=== PATIENT | female | born 1985 | race Caucasian/White ===

== ENCOUNTER 2017-02-04 17:07 | Emergency (ER) | payer OTHER ==
[2017-02-04 17:34] VITALS: BMI 26.4
[2017-02-04] MEDS ORDERED: NAPROXEN 500 MG TABLET (FP) PO ONE (17:39)
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
[2017-02-04] MEDS ORDERED: NAPROXEN 500 MG TABLET (FP) ONE (18:13)
[2017-02-04 19:02] VITALS: BP 117/59; PULSE 69; TEMP 97.6
== END 2017-02-04 18:16 | disposition home or self-care (01) ==
LOC: JER 17:07
DX: S13.4XXA Sprain of ligaments of cervical spine, initial encounter (principal); V43.52XA Car driver injured in collision with other type car in traffic accident, initial encounter; Y92.414 Local residential or business street as the place of occurrence of the external cause; Y93.89 Activity, other specified; Y99.0 Civilian activity done for income or pay
CPT/HCPCS: 99282-25

== ENCOUNTER 2017-07-11 04:28 | Inpatient (IN) | payer OTHER ==
[2017-07-11 04:40] VITALS: BMI 26.6
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
[2017-07-11 06:56] LABS: BASOPHIL 0.2 % (0-2.0); EOSINOPHIL 1.5 % (0-4.5); MCH 28.8 pg (25.7-33.7); MCHC 32.7 g/dl (32.0-36.0); MEAN CELL VOLUME 88.2 fl (80-96); MEAN PLT VOLUME 9.8 fl (7.5-11.1); NEUTROPHILS 48.4 % (42.8-82.8); PLATELET COUNT 200 K/MM3 (134-434); RDW 13.2 % (11.6-15.6); WHITE BLOOD COUNT 10.3 K/mm3 (4.0-10.0)
[2017-07-11] MEDS ORDERED: SODIUM CHLORIDE 1,000 ML IV ONE (06:56)
[2017-07-11 07:19] LABS: AMYLASE 63 U/L (25-115)
[2017-07-11 07:23] LABS: ALBUMIN 3.9 g/dl (3.4-5.0); ALK PHOS 74 U/L (45-117); ANION GAP 11 (8-16); BILIRUBIN,TOTAL 0.2 mg/dL (0.2-1.0); CALCIUM 8.9 mg/dL (8.5-10.1); CO2 21 mmol/L (21-32); CREATININE 0.6 mg/dL (0.55-1.02); GLUCOSE,RANDOM 95 mg/dL (74-106); SGOT/AST 18 U/L (15-37); SGPT/ALT 24 U/L (12-78); TOT PROT 7.9 g/dl (6.4-8.2)
[2017-07-11] MEDS ORDERED: LORazepam 2 MG/ML SDV VIAL ONE (08:41)
[2017-07-11 08:51] LABS: URINE MARIJUANA THC NEGATIVE ng/ml (CUTOFF=50)
[2017-07-11] MEDS ORDERED: ALBUTEROL SO4 2.5/IPRATROPIUM 0.5 INH SOL 3 ML VIAL.NEB. NEB ONE ×2 (10:06→10:22)
--- NOTE | 2017-07-11 10:36 | PDOC ---
*Physical Exam - Vital Signs Last Vital Signs Temp Pulse Resp BP Pulse Ox 98.4 F 113 H 18 117/78 99 07/11/17 07:48 07/11/17 09:47 07/11/17 09:47 07/11/17 09:47 07/11/17 09:47 ED Treatment Course - LABORATORY CBC & Chemistry Diagram: 07/11/17 06:48 07/11/17 06:48 - ADDITIONAL ORDERS Additional order review: Laboratory Results 07/11/17 07/11/17 07/11/17 08:55 08:22 07:47 Sodium Potassium Chloride Carbon Dioxide Anion Gap BUN Creatinine Creat Clearance w eGFR Random Glucose Lactic Acid 1.9 Calcium Total Bilirubin AST ALT Alkaline Phosphatase Total Protein Albumin Total Amylase Lipase Beta HCG, Quant Urine HCG, Qual Negative Opiates Screen Negative Methadone Screen Negative Barbiturate Screen Negative Phencyclidine Screen Negative Ur Amphetamines Screen Negative MDMA (Ecstasy) Screen Negative Benzodiazepines Screen Negative Cocaine Screen Negative U Marijuana (THC) Screen Negative Alcohol, Quantitative 07/11/17 07/11/17 07/11/17 06:48 06:48 06:48 Sodium Potassium Chloride Carbon Dioxide Anion Gap BUN Creatinine Creat Clearance w eGFR Random Glucose Lactic Acid Calcium Total Bilirubin AST ALT Alkaline Phosphatase Total Protein Albumin Total Amylase 63 Lipase 196 Beta HCG, Quant < 1.0 Urine HCG, Qual Opiates Screen Methadone Screen Barbiturate Screen Phencyclidine Screen Ur Amphetamines Screen MDMA (Ecstasy) Screen Benzodiazepines Screen Cocaine Screen U Marijuana (THC) Screen Alcohol, Quantitative 163.8 H* 07/11/17 06:48 Sodium 143 Potassium 3.8 Chloride 111 H Carbon Dioxide 21 Anion Gap 11 BUN 9 D Creatinine 0.6 Creat Clearance w eGFR > 60 Random Glucose 95 Lactic Acid Calcium 8.9 Total Bilirubin 0.2 D AST 18 ALT 24 Alkaline Phosphatase 74 D Total Protein 7.9 D Albumin 3.9 D Total Amylase Lipase Beta HCG, Quant Urine HCG, Qual Opiates Screen Methadone Screen Barbiturate Screen Phencyclidine Screen Ur Amphetamines Screen MDMA (Ecstasy) Screen Benzodiazepines Screen Cocaine Screen U Marijuana (THC) Screen Alcohol, Quantitative 07/11/17 06:48 RBC 4.50 MCV 88.2 MCHC 32.7 RDW 13.2 MPV 9.8 Neutrophils % 48.4 D Lymphocytes % 42.8 H D Monocytes % 7.1 Eosinophils % 1.5 Basophils % 0.2 - Medications Given in the ED: ED Medications Discontinued Medications Generic Name Dose Route Start Last Admin Trade Name Emanuel PRN Reason Stop Dose Admin Albuterol/Ipratropium 1 amp 07/11/17 10:06 07/11/17 10:17 Duoneb - NEB 07/11/17 10:07 1 amp ONCE ONE Administration Sodium Chloride 1,000 mls @ 1,000 mls/hr 07/11/17 06:56 07/11/17 06:57 Normal Saline - IV 07/11/17 07:55 1,000 mls/hr ASDIR ONE Administration Lorazepam 1 mg 07/11/17 08:41 07/11/17 08:52 Ativan Injection - IVPUSH 07/11/17 08:42 1 mg ONCE ONE Administration Medical Decision Making - Medical Decision Making 07/11/17 10:29 Sign out taken from Dr. Casanova at 7am. Pt is 32 yo F with h/o asthma presenting with altered mental status in the context of ETOH use last night. Pt arrived to ER obtunded, believed to be 2/2 ETOH. During course of ER visit, pt was observed by overnight attending to have jerking movements of her upper body. I also witnessed multiple episodes of jerking movements during the morning. My suspicion for true seizure activity is very low. The episodes appeared similar to coughing fits, but pt was completely unresponsive during these episodes. Given pt's level of obtundation, seizures cannot be ruled out at this time. CTH was obtained that appears normal. At approx 10AM - pt was reassessed and found to have improved mental status. Now alert and oriented, able to converse. Pt denies any coingestions last night , denies any recollection of what transpired. She states that she remembers having chest pain prior to collapsing. Mother at this time reports that she has a history of a "heart condition" that required intubation and ICU stay. Further questioning reveals that pt likely had a pericardial effusion. I performed a bedside echo that showed NO PERICARDIAL EFFUSION at this time, with normal contractility of the heart. EKG is NSR with no electrical alternans , pt's vital signs normal. I spoke with Dr. Fan, neurologist inventory control analyst, to discuss pt's work up for possible seizures. He agrees that the likelihood of seizure activity is low but recommends EEG during this admission. Sign out given to hospitalist team. Case discussed in detail with admitting physician including history, physical exam and ancillary studies. Admitting physician has assumed care for the patient and will follow all pending diagnostics and complete the evaluation and treatment. *DC/Admit/Observation/Transfer Diagnosis at time of Disposition: Altered mental status, Chest pain - Discharge Dispostion Admit: Yes Decision to Admit order Date/Time: Decision to Admit Order Category Date Time Status Decision to Admit to Hospital Routine Admission 07/11/17 10:15 Active
[2017-07-11 11:03] LABS: CPK 94 IU/L (26-192); TROPONIN I < 0.02 ng/ml (0.00-0.05)
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
[2017-07-11] MEDS ORDERED: ACETAMINOPHEN 325 MG TABLET (FP) ONE (16:29)
[2017-07-11] MEDS ORDERED: ACETAMINOPHEN 325 MG TABLET (FP) PO PRN (16:38)
--- NOTE | 2017-07-11 16:55 | MSN ---
Admitting History and Physical - Primary Care Physician PCP: Dr. Palm - Admission Chief Complaint: Seizure-liked activity History of Present Illness: Patient is a 32-year-old female with past medical history of asthma and chronic back pain 2/2 herniated disk, brought in by EMS for seizure-liked activity. Patient states that she experienced chest pain after she came home from her brother's birthday libertarian. Patient then felt short of breath and suddenly lost her consciousness. Patient states that she drank 3 beer at the libertarian and denies any illicit drug use. Patient also admits having chest pain at least once every month and a history of pericardial effusion with unknown etiology twice, which were treated in [facility]. Patient's aunt was presented during the seizure-liked episode and she states that patient was short of breath. She tried to find patient's inhaler and after she came back, patient was found unconscious on the floor, having full-body shaking multiple times, with foaming in her mouth, but without any urinary incontinence or tongue bite, each lasted for several seconds. Patient's aunt denies any history of seizure or heart disease on patient's behave. As per senior resident, patient states that she had experienced 2 episodes of transient amnesia. During those episodes, she states that she stopped walking on her way to a building in her college and stood for 30 minutes. In ER patient continued to be unresponsive and experienced several episodes of brief upper body shaking. Patient was given 1 dose to ativan 1mg IV. Patient later regained consciousness but was confused and lethargic. A bedside echo was performed by ER physician due to the complaint of chest pain and history of pericardial effusion, which was found to be negative. 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 arthroscopy on her right knee Cone biopsy of her cervix - Smoking History Smoking history: Never smoked Have you smoked in the past 12 months: No Aproximately how many cigarettes per day: 0 - Alcohol/Substance Use Hx Alcohol Use: Yes (SOCIALLY) History of Substance Use: reports: None - Social History Usual Living Arrangement: Yes: With Child ADL: Independent Occupation: Student History of Recent Travel: Yes ([place]) Home Medications - Allergies Allergies/Adverse Reactions: Allergies Allergy/AdvReac Type Severity Reaction Status Date / Time No Known Allergies Allergy Verified 07/11/17 04:37 - Home Medications Home Medications: Ambulatory Orders No Home Medications 0 dose .ROUTE UTDICT 10/05/13 Family Disease History - Family Disease History Family Disease History: Heart Disease: Mother (HTN) Review of Systems - Review of Systems Constitutional: reports: Chills, Lethargy. denies: Fever Cardiovascular: reports: Chest Pain, Edema, Shortness of Breath. denies: Palpitations Respiratory: reports: SOB, Wheezing Gastrointestinal: denies: Abdominal Pain Genitourinary: denies: Flank Pain, Incontinence Breasts: reports: Discharge from Nipple Musculoskeletal: reports: Back Pain. denies: Joint Pain, Joint Swelling Integumentary: reports: Lump (tender lump on right lateral foot) Neurological: denies: Numbness Physical Examination Vital Signs: Vital Signs Temperature 98.7 F 07/11/17 14:45 Pulse Rate 92 H 07/11/17 14:45 Respiratory Rate 22 07/11/17 14:45 Blood Pressure 136/85 07/11/17 14:45 O2 Sat by Pulse Oximetry (%) 100 07/11/17 11:52 Constitutional: Yes: Well Nourished, Mild Distress, Other (lethargic) Eyes: Yes: Conjunctiva Clear, EOM Intact, PERRL. No: Sclera Icterus HENT: Yes: Atraumatic, Normocephalic, Other (No tongue laceration) Neck: Yes: Supple, Trachea Midline Cardiovascular: Yes: Regular Rate and Rhythm, Tachycardia, S1, S2. No: Gallop, Murmur, Rub Respiratory: Yes: Wheezes (bilateral inspiatory and expiratory wheezes) Gastrointestinal: Yes: Normal Bowel Sounds, Soft. No: Distention, Tenderness, Tenderness, Rebound Musculoskeletal: Yes: Muscle Pain (tender on sternum and left lower ribs) Edema: No Peripheral Pulses WNL: Yes Peripheral Pulses: Left Radial: 2+, Right Radial: 2+, Left Doralis Pedis: 2+, Right Dorsalis Pedis: 2+ Integumentary: No: Bruising, Erythema Neurological: Yes: Alert, Oriented, Babinski negative, Lethargy. 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), LLE (3/5 on hip flexion), RUE (3+/5 on shouler abduction, elbow flexion and extension), RLE (3+/5 on hip flexion) Psychiatric: Yes: Alert, Oriented Labs: Laboratory Results - last 24 hr 07/11/17 07/11/17 07/11/17 06:48 06:48 06:48 WBC 10.3 H D RBC 4.50 Hgb 13.0 D Hct 39.7 D MCV 88.2 MCH 28.8 MCHC 32.7 RDW 13.2 Plt Count 200 D MPV 9.8 Neutrophils % 48.4 D Lymphocytes % 42.8 H D Monocytes % 7.1 Eosinophils % 1.5 Basophils % 0.2 Sodium 143 Potassium 3.8 Chloride 111 H Carbon Dioxide 21 Anion Gap 11 BUN 9 D Creatinine 0.6 Creat Clearance w eGFR > 60 Random Glucose 95 Lactic Acid Calcium 8.9 Total Bilirubin 0.2 D AST 18 ALT 24 Alkaline Phosphatase 74 D Creatine Kinase Troponin I Total Protein 7.9 D Albumin 3.9 D Total Amylase Lipase Beta HCG, Quant < 1.0 Urine HCG, Qual Opiates Screen Methadone Screen Barbiturate Screen Phencyclidine Screen Ur Amphetamines Screen MDMA (Ecstasy) Screen Benzodiazepines Screen Cocaine Screen U Marijuana (THC) Screen Alcohol, Quantitative 07/11/17 07/11/17 07/11/17 06:48 06:48 07:47 WBC RBC Hgb Hct MCV MCH MCHC RDW Plt Count MPV Neutrophils % Lymphocytes % Monocytes % Eosinophils % Basophils % Sodium Potassium Chloride Carbon Dioxide Anion Gap BUN Creatinine Creat Clearance w eGFR Random Glucose Lactic Acid Calcium Total Bilirubin AST ALT Alkaline Phosphatase Creatine Kinase Troponin I Total Protein Albumin Total Amylase 63 Lipase 196 Beta HCG, Quant Urine HCG, Qual Opiates Screen Negative Methadone Screen Negative Barbiturate Screen Negative Phencyclidine Screen Negative Ur Amphetamines Screen Negative MDMA (Ecstasy) Screen Negative Benzodiazepines Screen Negative Cocaine Screen Negative U Marijuana (THC) Screen Negative Alcohol, Quantitative 163.8 H* 07/11/17 07/11/17 07/11/17 08:22 08:55 10:17 WBC RBC Hgb Hct MCV MCH MCHC RDW Plt Count MPV Neutrophils % Lymphocytes % Monocytes % Eosinophils % Basophils % Sodium Potassium Chloride Carbon Dioxide Anion Gap BUN Creatinine Creat Clearance w eGFR Random Glucose Lactic Acid 1.9 Calcium Total Bilirubin AST ALT Alkaline Phosphatase Creatine Kinase 94 Troponin I < 0.02 Total Protein Albumin Total Amylase Lipase Beta HCG, Quant Urine HCG, Qual Negative Opiates Screen Methadone Screen Barbiturate Screen Phencyclidine Screen Ur Amphetamines Screen MDMA (Ecstasy) Screen Benzodiazepines Screen Cocaine Screen U Marijuana (THC) Screen Alcohol, Quantitative Imaging - Results Cat Scan: Report Reviewed (No acute intracranial pathology), Image Reviewed EKG: Report Reviewed (normal sinus rhythm, T wave inversion on V1, V2, no ST elevation), Image Reviewed Problem List - Problems (1) Chest pain Code(s): R07.9 - CHEST PAIN, UNSPECIFIED Qualifiers: Chest pain type: precordial pain Qualified Code(s): R07.2 - Precordial pain; R07.2 - Precordial pain (2) Seizure Code(s): R56.9 - UNSPECIFIED CONVULSIONS (3) Asthma Code(s): J45.909 - UNSPECIFIED ASTHMA, UNCOMPLICATED Qualifiers: Asthma severity: unspecified severity Asthma persistence: unspecified Asthma complication type: uncomplicated Qualified Code(s): J45.909 - Unspecified asthma, uncomplicated; J45.909 - Unspecified asthma, uncomplicated; J45.909 - Unspecified asthma, uncomplicated (4) Tachycardia Code(s): R00.0 - TACHYCARDIA, UNSPECIFIED Assessment/Plan Patient is a 32-year-old female with a past medical history of asthma and chronic back pain, being evaluated for seizure-liked activity and chest pain. 1. Seizure-liked activity - Pseudo-seizure vs. tonic-clonic seizure - Most likely tonic-clonic seizure initially, then followed by pseudo-seizure - Initial CT shows no intracranial pathology, will order MRI to rule out intraparenchymal pathology or underlying tumor - Order EEG to rule out seizure activity - Neuro check Q4Hr to access patient's mental status - Consult neuro - Seizure protocol 2. Chest pain - Most likely musculoskeletal in origin (tender to palpation, worse with movement) - Other etiology includes cardiac, although unlikely (negative trop x2, EKG shows NSR) - Order chest and left rib x-ray to rule out any acute fracture 2/2 to fall - Repeat EKG - Order ECHO to rule out any cardiac pathology - Pain control with tylenol 650mg PO Q6hr PRN 3. Asthma - Continue Duoneb - Albuterol PRN 4. Tachycardia - Likely pain-related - Continue to monitor after pain control 5. DVT prophylaxis - Lovenox 40mg SQ once daily - Encourage early ambulation as tolerated
[2017-07-11 17:10] LABS: CPK 88 IU/L (26-192); TROPONIN I < 0.02 ng/ml (0.00-0.05)
[2017-07-11] MEDS ORDERED: PNEUMOC 13-VAL CONJ-DIP CRM/PF 0.5 ML DISP.SYRIN IM ONE (18:00)
--- NOTE | 2017-07-11 18:25 | HP ---
CHIEF COMPLAINT: seizure-like activity PCP: Dr. Palm HISTORY OF PRESENT ILLNESS: 32 yr old woman with asthma BIBEMS due to witnessed seizure-like activity. she had returned from her little brother's bday with the family where she had two sim's and "small whiskey and red bull" that she did not finish without eating food. She was able to drive home. She went upstairs to the bathroom and felt 10/10 aching left sided chest pain radiating to her left shoulder and shortness of breath, she felt herself go the ground and she passed out. She recalls waking up briefly and hearing her aunt looking for her inhaler, she recalls that her chest pain was still present. she passed out again and the next thing she recalls is waking up in the ED. Denies drug use. says she has been having memory problems for the past month and notes an episode of transient amnesia last week. she went to [employer], a campus she has been going to for the past year and familiar with. She walked from her to a building and then from building 1 to building 2, she walked out of building 2 into the courtyard she stood there for 30 minutes unable to recall her name, where she was or what she was doing. She followed people around until she remembered who she was and where she is 30mins later. Her chest pain continued in the ED. Says she has been having intermittent clear watery discharge from her b/l nipple and areolas since her breast surgery and says her breasts always feel full, like "they are engorged as if she was still lactating." denies bloodt or milk like discharge, denies breast trauma. ER course was notable for: (1) head ct w/o contrast: no acute pathology (2) EKG, trop 1 negative (3) witnessed UE seizure-like activity lasting several seconds at a time, was given ativan with minimal relief. Recent Travel: was in [place] in last 3 months, denies new exposures/raw or new food PAST MEDICAL HISTORY: 3-4 yrs ago she was hospitalized in an ICU for 1 week during which she was intubated, due to pericardial effusion, she was found by family not breathing at home, she had been intubated in the field and brought to a hospital. does not know the cause of the effusion, is not medications and does not follow with user support analyst. asthma - controlled, uses flovent prn Disc herniation - receives cervical cortisone shots for pain by Dr. Castañeda has IUD in place for birthcontrol, thinks it's chrome, unsure if it is hormonal PAST SURGICAL HISTORY: b/l breast reconstruction - [place] of the [place] 3[place]7 yrs ago due to breast damage caused by breast feeding 05/2017 right knee arthroscopy Social History: 2 daughters, aged 12 and 13 Smoking: started age 23, smoked 1pk/day for 1 year, 2pks/day for 1yr then tapers to 1pk/day for 1yr then quit. recent nicotine use few days ago with 2 cigs Alcohol: occasional, denies hx of DT's Drugs: denies Family History: grandmother with HTN, denies family hx of seizures or cardiac conditions Allergies No Known Allergies Allergy (Verified 07/11/17 04:37) HOME MEDICATIONS: takes motrin 800mg BID almost every other day for pain REVIEW OF SYSTEMS CONSTITUTIONAL: Present: intentional weight loss, "a little bit in the last 2 months" Absent: fever, chills, diaphoresis, generalized weakness, malaise, loss of appetite, HEENT: Absent: rhinorrhea, nasal congestion, throat pain, throat swelling, difficulty swallowing, mouth swelling, ear pain, eye pain, visual changes CARDIOVASCULAR: Present: chest pain, Absent: syncope, palpitations, irregular heart rate, lightheadedness, peripheral edema RESPIRATORY: Present: shortness of breath, occasional nonproductive cough, Absent: dyspnea with exertion, orthopnea, wheezing, stridor, hemoptysis GASTROINTESTINAL: Absent: abdominal pain, abdominal distension, nausea, vomiting, diarrhea, constipation, melena, hematochezia GENITOURINARY: Absent: dysuria, frequency, urgency, hesitancy, hematuria, flank pain, genital pain MUSCULOSKELETAL: Absent: myalgia, arthralgia, joint swelling, back pain, neck pain SKIN: Absent: rash, itching, pallor HEMATOLOGIC/IMMUNOLOGIC: Absent: easy bleeding, easy bruising, lymphadenopathy, frequent infections ENDOCRINE: Absent: unexplained weight gain, unexplained weight loss, heat intolerance, cold intolerance NEUROLOGIC: Present: seizure-like activity, mental status changes Absent: headache, focal weakness or paresthesias, dizziness, unsteady gait,, bladder or bowel incontinence PHYSICAL EXAMINATION Vital Signs - 24 hr 07/11/17 07/11/17 12:41 14:45 Temperature 98.7 F Pulse Rate 99 H 92 H Respiratory 16 22 Rate Blood Pressure 135/80 136/85 GENERAL: Awake, alert, and fully oriented, in no acute distress. HEAD: Normal with no signs of trauma. EYES: Pupils equal, round and reactive to light, extraocular movements intact, sclera anicteric, conjunctiva clear. No lid lag. EARS, NOSE, THROAT: oropharynx clear without exudates. Moist mucous membranes. no oral lesions, prominent tonsils without erythema or exudates. NECK: Normal range of motion, supple without lymphadenopathy, JVD, or masses. LUNGS: Breath sounds equal, mild wheezing b/l, no crackles, no rhonchi. HEART: Regular rhythm, tachycardia, normal S1 and S2 without murmur, rub or gallop. CHEST: ttp in midsternum and left lateral chest ABDOMEN: Soft, nontender, not distended, normoactive bowel sounds, no guarding, no rebound, no masses. No hepatomegaly or splenomegaly. MUSCULOSKELETAL: ttp in right lateral foot, No CVA tenderness. UPPER EXTREMITIES: 2+ radial pulses, warm, well-perfused. No cyanosis. No clubbing. No peripheral edema. LOWER EXTREMITIES: 2+ dp pulses, warm, well-perfused. No calf tenderness. right knee with well-healed scars. right ankle swelling. NEUROLOGICAL: Cranial nerves II-XII intact. Normal speech. facial symmetry, poor motor strength effort during exam, however patient was able to lift herself up to sitting position by herself. 2+ reflex in b/l biceps and brachioradialis and knee jerk. oriented to person/birthday/place/month/date/year /day/president, immediate recall of 3/3, 5-minute recall 2/3, did not spell world forwards or backwards, able to complete serial subtracts of 3 from 100 made it to 91. SKIN: Warm, dry, normal turgor, no rashes or lesions noted, normal capillary refill. Laboratory Results - last 24 hr 07/11/17 15:30 Creatine Kinase 88 Troponin I < 0.02 ASSESSMENT/PLAN: 32 yr old woman with asthma BIBEMS due to seizure-like activity and chest pain of unclear etiology. #Seizure-like activity of unclear etiology, no s/s of infections/electrolyte abnormalities/u tox neg, suspicious for pseudoseizure pending further w/u - MRI without contrast to r/o tissue pathology - neuro consult, Dr. Fan called by Dr. Pozo in ED, recommend EEG - low suspicion for etoh- w.d seizure as pt had only drank alcohol a few hours prior, early to be in withdrawal #Chest pain - reproducible, likely due to trauma of falling down - rib series xrays - r/o ACS with trop x2 and repeat EKG, though low suspicion as she has no risk- factors - pain control with tylenol prn #Asthma - duonebs prn #right ankle swelling - ankle xray to r/o fracture #Breast discharge - prolactin level #DVT - lovenox #Diet: regular Visit type - Emergency Visit Emergency Visit: Yes ED Registration Date: 07/11/17 Care time: The patient presented to the Emergency Department on the above date and was hospitalized for further evaluation of their emergent condition. - New Patient This patient is new to me today: Yes Date on this admission: 07/11/17 - Critical Care Critical Care patient: No
--- NOTE | 2017-07-11 20:04 | CONSULT ---
Consult - text type - Consultation Consultation Note: NEUROLOGY CONSULTATION is greatly appreciated: This 32 yo RH edgar has 2 children aged 13 and 12. H/O asthma for which he uses inhaler on PRN basis. 2 years ago had chest pain, radiating to the right arm with SOB and was found to have pericardial effusion. Cause was never discovered and/or explained. Yesterday, after a alliance party, Pt experinced chest pain, SOB and Loss of consciousness. On arrival to ER was "obtunded" with BAL > 160 mg%. During the evening she exhibited jerking mov'ts of the arms witnessed by the ER MD who suspected non-epileptic etiology. This morning obtundation and jerking had resolved. Pt continues to c/o chest pressure and SOB. CT of head and MRI of brain (reviewed): Normal BERHANE: + scattered wheezes. Chest pain to auscultation. No evidence of head injury. NEURO: Withdrawn but awake, alert. Slow to respond. O x 3. Fluent speech CN II-XII: Normal Motor: Drops left arm without drift. Grasps and MIRNA's are variable on the left but normalize with encouragement. Normal reflexes. Toes downgoing Coord: No FTN dystaxia Sensory: Normal Gait: Variable but normal station. IMP: Normal neurological exam. Possible syncope. Possible seizure. Depression Suggest: Pulmonary consultation and PFT's Cardiology consultation and echocardiogram Mobilize OO bed to chair and follow orthostatic BP's. No specific neuro Rx at this time. Thank you very much, Lonnie Fan MD
--- NOTE | 2017-07-11 20:07 | HP ---
CHIEF COMPLAINT: seizures PCP: Dr. Palm HISTORY OF PRESENT ILLNESS: 32F w/ hx of asthma, herniated disk, and a pericardial effusion of unclear etiology presenting with seizure-like activity. Per pt, she had 3 beers at her relative's birthday [employer], came home, and started having dyspnea and chest pain. While her aunt searched for her inhaler, she collapsed in the bathroom and does not remember what happened until arriving in the hospital. Per the aunt , she found the pt on the floor with her arms and legs extended shaking her torso and foaming at the mouth. She denies urinary or stool incontinence and tongue biting. This episode lasted several seconds, and the pt remained unresponsive. She called EMS, and the pt developed several more episodes of these seizure-like episodes en route to the hospital. The pt denies any trauma suffered from collapsing. The pt has no personal or family hx of seizures. Pt denies fevers, chills, n/v/d /c, abdominal pain, dysuria, and sick contacts. ER course was notable for: (1) bedside echo showing no pericardial effusion (2) normal head CT (3) pt given ativan 1mg, duonebs, and 1L NS Recent Travel: PAST MEDICAL HISTORY: Asthma pericardial effusion of unclear etiology herniated disk PAST SURGICAL HISTORY: b/l breast tissue repair knee surgery Social History: Smoking: none Alcohol: social Drugs: none Family History: Allergies No Known Allergies Allergy (Verified 07/11/17 04:37) HOME MEDICATIONS: Home Medications Medication Instructions Recorded No Home Medications 0 dose .ROUTE UTDICT 10/05/13 REVIEW OF SYSTEMS CONSTITUTIONAL: Absent: fever, chills, diaphoresis, generalized weakness, malaise, loss of appetite, weight change HEENT: Absent: rhinorrhea, nasal congestion, throat pain, throat swelling, difficulty swallowing, mouth swelling, ear pain, eye pain, visual changes CARDIOVASCULAR: Absent: syncope, palpitations, irregular heart rate, lightheadedness, peripheral edema Present: chest pain RESPIRATORY: Absent: cough, dyspnea with exertion, orthopnea, wheezing, stridor, hemoptysis Present: SOB GASTROINTESTINAL: Absent: abdominal pain, abdominal distension, nausea, vomiting, diarrhea, constipation, melena, hematochezia GENITOURINARY: Absent: dysuria, frequency, urgency, hesitancy, hematuria, flank pain, genital pain MUSCULOSKELETAL: Absent: myalgia, arthralgia, joint swelling, back pain, neck pain SKIN: Absent: rash, itching, pallor HEMATOLOGIC/IMMUNOLOGIC: Absent: easy bleeding, easy bruising, lymphadenopathy, frequent infections ENDOCRINE: Absent: unexplained weight gain, unexplained weight loss, heat intolerance, cold intolerance NEUROLOGIC: Absent: headache, focal weakness or paresthesias, dizziness, unsteady gait, mental status changes, bladder or bowel incontinence Present: questionable seizure PSYCHIATRIC: Absent: anxiety, depression, suicidal or homicidal ideation, hallucinations. PHYSICAL EXAMINATION Vital Signs - 24 hr 07/11/17 07/11/17 12:41 14:45 Temperature 98.7 F Pulse Rate 99 H 92 H Respiratory 16 22 Rate Blood Pressure 135/80 136/85 GENERAL: middle aged female, lying in bed, drowsy HEAD: Normal with no signs of trauma. EYES: Pupils equal, round and reactive to light, extraocular movements intact, sclera anicteric, conjunctiva clear. No lid lag. EARS, NOSE, THROAT: Ears normal, nares patent, oropharynx clear without exudates. Moist mucous membranes. NECK: Normal range of motion, supple without lymphadenopathy, JVD, or masses. LUNGS: Breath sounds equal, clear to auscultation bilaterally. No wheezes, and no crackles. No accessory muscle use. HEART: tachycardic, normal rhythm, normal S1 and S2 without murmur, rub or gallop. Tender to palpation over sternum and left side of chest. ABDOMEN: Soft, nontender, not distended, normoactive bowel sounds, no guarding, no rebound, no masses. No hepatomegaly or splenomegaly. MUSCULOSKELETAL: Normal range of motion at all joints. tenderness along left side overlying ribs. Right lateral foot has a very tender papule with possible surrounding bruising. Mild swelling of lateral right foot and ankle. NEUROLOGICAL: Cranial nerves II-XII intact. 4/5 strength for right handgrip, arm abduction, flexion, and extension. 3/5 strength for left handgrip, arm abduction, flexion, and extension. 4/5 strength in b/l LE for hip and leg flexion and extension. Sensory function intact to touch b/l. Reflexes 2+ in b/l biceps, triceps, and brachioradialis. Reflexes 3+ in b/l knee, negative babinski. SKIN: Warm, dry, normal turgor, no rashes or lesions noted, normal capillary refill. Laboratory Tests 07/11/17 07/11/17 07/11/17 06:48 06:48 06:48 WBC 10.3 H D RBC 4.50 Hgb 13.0 D Hct 39.7 D MCV 88.2 MCH 28.8 MCHC 32.7 RDW 13.2 Plt Count 200 D MPV 9.8 Neutrophils % 48.4 D Lymphocytes % 42.8 H D Monocytes % 7.1 Eosinophils % 1.5 Basophils % 0.2 Sodium 143 Potassium 3.8 Chloride 111 H Carbon Dioxide 21 Anion Gap 11 BUN 9 D Creatinine 0.6 Creat Clearance w eGFR > 60 Random Glucose 95 Lactic Acid Calcium 8.9 Total Bilirubin 0.2 D AST 18 ALT 24 Alkaline Phosphatase 74 D Creatine Kinase Troponin I Total Protein 7.9 D Albumin 3.9 D Total Amylase Lipase Beta HCG, Quant < 1.0 Urine HCG, Qual Opiates Screen Methadone Screen Barbiturate Screen Phencyclidine Screen Ur Amphetamines Screen MDMA (Ecstasy) Screen Benzodiazepines Screen Cocaine Screen U Marijuana (THC) Screen Alcohol, Quantitative 07/11/17 07/11/17 07/11/17 06:48 06:48 07:47 WBC RBC Hgb Hct MCV MCH MCHC RDW Plt Count MPV Neutrophils % Lymphocytes % Monocytes % Eosinophils % Basophils % Sodium Potassium Chloride Carbon Dioxide Anion Gap BUN Creatinine Creat Clearance w eGFR Random Glucose Lactic Acid Calcium Total Bilirubin AST ALT Alkaline Phosphatase Creatine Kinase Troponin I Total Protein Albumin Total Amylase 63 Lipase 196 Beta HCG, Quant Urine HCG, Qual Opiates Screen Negative Methadone Screen Negative Barbiturate Screen Negative Phencyclidine Screen Negative Ur Amphetamines Screen Negative MDMA (Ecstasy) Screen Negative Benzodiazepines Screen Negative Cocaine Screen Negative U Marijuana (THC) Screen Negative Alcohol, Quantitative 163.8 H* 07/11/17 07/11/17 07/11/17 08:22 08:55 10:17 WBC RBC Hgb Hct MCV MCH MCHC RDW Plt Count MPV Neutrophils % Lymphocytes % Monocytes % Eosinophils % Basophils % Sodium Potassium Chloride Carbon Dioxide Anion Gap BUN Creatinine Creat Clearance w eGFR Random Glucose Lactic Acid 1.9 Calcium Total Bilirubin AST ALT Alkaline Phosphatase Creatine Kinase 94 Troponin I < 0.02 Total Protein Albumin Total Amylase Lipase Beta HCG, Quant Urine HCG, Qual Negative Opiates Screen Methadone Screen Barbiturate Screen Phencyclidine Screen Ur Amphetamines Screen MDMA (Ecstasy) Screen Benzodiazepines Screen Cocaine Screen U Marijuana (THC) Screen Alcohol, Quantitative 07/11/17 15:30 WBC RBC Hgb Hct MCV MCH MCHC RDW Plt Count MPV Neutrophils % Lymphocytes % Monocytes % Eosinophils % Basophils % Sodium Potassium Chloride Carbon Dioxide Anion Gap BUN Creatinine Creat Clearance w eGFR Random Glucose Lactic Acid Calcium Total Bilirubin AST ALT Alkaline Phosphatase Creatine Kinase 88 Troponin I < 0.02 Total Protein Albumin Total Amylase Lipase Beta HCG, Quant Urine HCG, Qual Opiates Screen Methadone Screen Barbiturate Screen Phencyclidine Screen Ur Amphetamines Screen MDMA (Ecstasy) Screen Benzodiazepines Screen Cocaine Screen U Marijuana (THC) Screen Alcohol, Quantitative ASSESSMENT/PLAN: 32F w/ hx of asthma, herniated disk, and a pericardial effusion of unclear etiology presenting with multiple episodes of seizure-like activity, found to have mild tachycardia. #Episodic seizure-like activity -unlikely real seizure given hx. Infectious (no fever, no leukocytosis), traumatic (head CT negative), and metabolic causes ruled out. -f/u EEG per neuro. Neuro on board- Dr. Fan -seizure precautions, neuro checks q4h -f/u MRI w/o contrast #tachycardia -likely 2/2 pain -monitor #chest pain -likely MSK in nature given reproducibility on palpation of left chest. Possibly 2/2 falling on left side during first seizure-like episode. Trop negative. F/u 2nd trop and repeat EKG -f/u echo -f/u CXR, left rib XR -APAP PRN #Right foot pain -possibly 2/2 to fall -f/u right ankle and foot XR #Asthma -duonebs PRN #b/l galactorrhea -f/u prolactin #FEN/PPx -no fluids -electrolytes wnl -regular diet -no GI ppx indicated -lovenox 40mg -Venancio Lazo MD PGY1 Visit type - Emergency Visit Emergency Visit: Yes ED Registration Date: 07/11/17 Care time: The patient presented to the Emergency Department on the above date and was hospitalized for further evaluation of their emergent condition. - New Patient This patient is new to me today: Yes Date on this admission: 07/11/17 - Critical Care Critical Care patient: No
[2017-07-11] MEDS ORDERED: MELATONIN 1 MG TABLET PO ONE (23:15)
[2017-07-12 08:13] LABS: BASOPHIL 0.3 % (0-2.0); EOSINOPHIL 4.9 % (0-4.5); MCH 28.5 pg (25.7-33.7); MCHC 32.4 g/dl (32.0-36.0); MEAN CELL VOLUME 87.9 fl (80-96); MEAN PLT VOLUME 9.6 fl (7.5-11.1); NEUTROPHILS 40.5 % (42.8-82.8); PLATELET COUNT 157 K/MM3 (134-434); RDW 13.2 % (11.6-15.6); WHITE BLOOD COUNT 6.5 K/mm3 (4.0-10.0)
[2017-07-12 08:30] LABS: ANION GAP 8 (8-16); CALCIUM 8.7 mg/dL (8.5-10.1); CO2 25 mmol/L (21-32); CREATININE 0.6 mg/dL (0.55-1.02); GLUCOSE,RANDOM 79 mg/dL (74-106)
[2017-07-12] MEDS ORDERED: PNEUMOC 13-VAL CONJ-DIP CRM/PF 0.5 ML DISP.SYRIN IM ONE (10:00)
[2017-07-12] MEDS: ENOXAPARIN NA (PORCINE) 40 MG/0.4 ML DISP.SYRIN SQ SCH (11:02)
[2017-07-12] MEDS ORDERED: predniSONE 20 MG TABLET (UD) PO ONE (12:45)
[2017-07-12] MEDS: ALBUTEROL SO4 2.5/IPRATROPIUM 0.5 INH SOL 3 ML VIAL.NEB. NEB PRN ×2 (14:11→22:45)
--- NOTE | 2017-07-12 14:15 | MSN ---
Progress Note (SOAP) - Subjective Chief Complaint: Seizure-liked activity and left sided chest pain History of Present Illness: Patient is a 32-year-old female with past medical history of asthma and chronic back pain, brought in by EMS and is being evaluated for seizure-liked activity and left-sided chest pain. Nursing staff reports no acute event overnight. Vital signs were stable. Patient reports one episode of shaking overnight. Patient still complains of chest pressure with shortness of breath and chills. Patient also reports headache, mild nausea and generalized weakness. Patient denies any palpitation, abdominal pain, numbness/tingling, diarrhea/ constipation. - Current Medications Current Medications: Active Medications Acetaminophen (Tylenol -) 650 mg PO Q6H PRN PRN Reason: FEVER OR PAIN Albuterol/Ipratropium (Duoneb -) 1 amp NEB Q4H PRN PRN Reason: SHORTNESS OF BREATH Enoxaparin Sodium (Lovenox -) 40 mg SQ DAILY [facility] Last Admin: 07/12/17 11:02 Dose: 40 mg Fluticasone/Salmeterol (Advair 100mcg/50mcg -) 1 puff IH BID [facility] - Objective Vital Signs: Vital Signs Temperature 97.9 F 07/12/17 09:00 Pulse Rate 86 07/12/17 09:00 Respiratory Rate 18 07/12/17 09:00 Blood Pressure 133/92 07/12/17 09:00 O2 Sat by Pulse Oximetry (%) 100 07/11/17 21:00 Constitutional: Yes: Other (mild lethargic, AAO x3) Eyes: Yes: EOM Intact, PERRL. No: Diplopia, Sclera Icterus HENT: Yes: Other (No tongue laceration, no uvula or tongue deviation) Neck: Yes: Supple. No: Tenderness Cardiovascular: Yes: Regular Rate and Rhythm. No: Gallop, Murmur, Rub Respiratory: Yes: Wheezes (scatter wheezes bilaterally) Gastrointestinal: Yes: Normal Bowel Sounds, Soft. No: Tenderness, Tenderness, Rebound Musculoskeletal: Yes: Muscle Pain (tenderness over sternum and left posterior lower ribs) Extremities: No: Calf Tenderness Edema: No Neurological: Yes: Alert, Oriented, Babinski negative, Cran Nerves II-XII Intact , Unsteady Gait. No: Facial Droop, Loss of Sensation ...Motor Strength: Yes: LUE (4/5 on shoulder abduction, elbow flexion and extension, wrist flexion and extension), LLE (4/5 on hip flexion, knee flexion and extension, dorsiflexion and plantaflexion), RUE (5/5 on shoulder abduction, elbow flexion and extension, wrist flexion and extension), RLE (5/5 on hip flexion, knee flexion and extension, dorsiflexion and plantaflexion) Labs Lab Results: CBC, BMP 07/12/17 07:00 07/12/17 07:00 Laboratory Results - last 24 hr 07/11/17 07/12/17 07/12/17 15:30 07:00 07:00 WBC 6.5 D RBC 4.19 Hgb 11.9 Hct 36.8 MCV 87.9 MCH 28.5 MCHC 32.4 RDW 13.2 Plt Count 157 D MPV 9.6 Neutrophils % 40.5 L Lymphocytes % 46.8 H Monocytes % 7.5 Eosinophils % 4.9 H D Basophils % 0.3 Sodium 140 Potassium 3.6 Chloride 107 Carbon Dioxide 25 Anion Gap 8 BUN 12 D Creatinine 0.6 Random Glucose 79 Calcium 8.7 Creatine Kinase 88 Troponin I < 0.02 Imaging - Results Chest X-ray: Report Reviewed (No acute lung diseases, no acute gross fracture of the ribs), Image Reviewed X-ray: Report Reviewed (Right ankle X-ray shows no gross fracture), Image Reviewed MRI: Report Reviewed, Image Reviewed (No intracranial pathology or underlying tumor) Problem List - Problems (1) Chest pain Code(s): R07.9 - CHEST PAIN, UNSPECIFIED Qualifiers: Qualified Code(s): R07.2 - Precordial pain; R07.2 - Precordial pain (2) Seizure Code(s): R56.9 - UNSPECIFIED CONVULSIONS (3) Asthma Code(s): J45.909 - UNSPECIFIED ASTHMA, UNCOMPLICATED Qualifiers: Qualified Code(s): J45.909 - Unspecified asthma, uncomplicated; J45.909 - Unspecified asthma, uncomplicated; J45.909 - Unspecified asthma, uncomplicated (4) Tachycardia Code(s): R00.0 - TACHYCARDIA, UNSPECIFIED Assessment/Plan Patient is a 32-year-old female with a past medical history of asthma and chronic back pain, being evaluated for seizure-liked activity and chest pain. 1. Seizure-liked activity - Pseudo-seizure vs. tonic-clonic seizure - Most likely tonic-clonic seizure initially, then followed by pseudo-seizure - MRI shows no intracranial pathology - EEG completed, pending report - Continue Neuro check Q4Hr - Neuro consulted: check PFTs and echo, no neuro treatment at this time - Consider outpatient psych consult - PT evaluation before discharging 2. Chest pain - Most likely musculoskeletal in origin (tender to palpation, worse with movement) - Other etiology includes cardiac, although unlikely (negative trop x2, EKG shows NSR) - No acute fracture is noted on chest and ribs x-ray - ECHO completed, pending report - Pain control with tylenol 650mg PO Q6hr PRN 3. Asthma - possible asthma exacerbation - Eosinophilia at 4.9 - Continue duoneb - Start prednisone course with taper - Outpatient pulmonary consult 4. Tachycardia - Likely pain-related, resolved - Continue to monitor after pain control 5. DVT prophylaxis - Lovenox 40mg SQ once daily - Encourage early ambulation as tolerated
--- NOTE | 2017-07-12 15:01 | DS ---
Physical Exam: SUBJECTIVE: Patient seen and examined. No acute events overnight. Pt reports a mild headache, mild shortness of breath , 1 more episode of seizure-like activity, weakness, and chest pressure. She denies abdominal pain, nausea, emesis, diarrhea, and constipation. OBJECTIVE: Vital Signs Period Temp Pulse Resp BP Sys/Bird Pulse Ox Last 24 Hr 97.9 F-98.7 F 66-97 17-18 121-137/75-92 100 PHYSICAL EXAM GENERAL: The patient is awake, alert, and fully oriented, in no acute distress. HEAD: Normal with no signs of trauma. EYES: PERRL, extraocular movements intact, sclera anicteric, conjunctiva clear. ENT: Ears normal, nares patent, oropharynx clear without exudates, moist mucous membranes. NECK: Trachea midline, full range of motion, supple. LUNGS: diffuse wheezing and rhonchi, no accessory respiratory muscle use, respiratory rate of 18 HEART: Regular rate and rhythm, S1, S2 without murmur, rub or gallop. ABDOMEN: Soft, nontender, nondistended, normoactive bowel sounds, no guarding, no rebound, no hepatosplenomegaly, no masses. NEUROLOGICAL: Cranial nerves II-XII intact. 5/5 strength for right handgrip, arm abduction, flexion, and extension. 4/5 strength for left handgrip, 5/5 left arm abduction, flexion, and extension. 4/5 strength in b/l LE for hip and leg flexion and extension. Sensory function intact to touch b/l. Reflexes 2+ in b/l biceps, triceps, and brachioradialis, and b/l knee, negative babinskis. NEUROLOGICAL: Cranial nerves II through XII grossly intact. AAOx3, normal speech , gait is hesitant. SKIN: Warm, dry, normal turgor, no rashes or lesions noted. LABS Laboratory Results - last 24 hr 07/11/17 07/12/17 07/12/17 15:30 07:00 07:00 WBC 6.5 D RBC 4.19 Hgb 11.9 Hct 36.8 MCV 87.9 MCH 28.5 MCHC 32.4 RDW 13.2 Plt Count 157 D MPV 9.6 Neutrophils % 40.5 L Lymphocytes % 46.8 H Monocytes % 7.5 Eosinophils % 4.9 H D Basophils % 0.3 Sodium 140 Potassium 3.6 Chloride 107 Carbon Dioxide 25 Anion Gap 8 BUN 12 D Creatinine 0.6 Random Glucose 79 Calcium 8.7 Creatine Kinase 88 Troponin I < 0.[address]: negative Rib Xrays, CXR, and right ankle XR: negative for any acute fracture Brain MRI: no abnormalities Utox: negative urine alcohol: 163 EKG: NSR, left-axis deviation Echo: mild basal interventricular septal hypertrophy with minimal LVOT gradient. Mitral valve: AML is redundant and appears voluminous and there appears to be mild degree of prolapse. HOSPITAL COURSE: Date of Admission:07/11/17 Date of Discharge: 07/13/17 32F w/ hx of asthma, pericardial effusion of unknown etiology, and herniated disk who presented with acute encephalopathy, loss of consciousness, and seizure -like activity. Workup for seizures did not reveal any cause, and it is uncertain whether pt actually had a true seizure. A final EEG report is still pending. Workup for chest pain ruled out cardiac causes and was likely musculoskeletal in nature 2/2 fall on floor prior to admission. Pt reported some mild SOB and had diffuse wheezing, so she was started on a prednisone course. Pt reported b/l galactorrhea, a prolactin level was ordered, and it is still pending. Pt was informed to follow up with neurology, pulmonology, psychiatry, cardiology, and PCP. Today, pt is stable, with normal vitals, and is ready for discharge home. Minutes to complete discharge: 37 Discharge Summary Reason For Visit: ALTERED MENTAL STATUS Current Active Problems Altered mental status (Acute) Asthma (Acute) Chest pain (Acute) Seizure (Acute) Tachycardia (Acute) Condition: Improved - Instructions Diet, Activity, Other Instructions: You presented to the hospital with seizure-like activity and chest pain. Workup for your seizure-like activity did not reveal a cause. Xrays of your ribs did not show an acute fracture. Your chest pain might be from falling on your side during your fall before admission. For your asthma, we have started you on a prednisone taper and prescribed you albuterol, nebulizers, and advair. For your prednisone taper: Take 40mg for 2 days, then 30mg for 3 days, then 20mg for 3 days, and finally 10mg for 1 day 1. Follow up with a PCP within one week. We have referred you to the resident clinic. A prolactin level is still pending ( for nipple discharge ) , you need further evaluation for that . 2. Follow up with pulmonology within two weeks to evaluate your asthma and optimally control it. You have been referred to Dr. Castañeda. 3. Follow up with neurology, Dr. Fan, within two weeks to further evaluate you for your seizure-like activity. He will review your EEG results with you. 4. Follow up with a psychiatrist, Dr. Sultana, within two weeks. 5. Follow up with a olericulture professor, Dr. De La Fuente, within two weeks to evaluate you. If you develop any new or concerning symptoms, return to the ED. Referrals: John Paul San MD [Staff Physician] - Escobar Castañeda MD [Staff Physician] - Eliu Sultana MD [Staff Physician] - Lonnie Fan MD [Staff Physician] - Felice De La Fuente MD [Staff Physician] - Disposition: HOME - Home Medications Comprehensive Discharge Medication List: Ambulatory Orders No Home Medications 0 dose .ROUTE UTDICT 10/05/13 Albuterol 0.083% Nebulizer Altagracia [Ventolin 0.083% Nebulizer Soln -] 1 neb NEB PRN #1 vial 07/12/17 Nebulizer [Nasoneb Nasal Nebulizer] 1 each MC PRN #1 each 07/12/17 Prednisone [Deltasone] 20 mg PO DAILY #12 tablet 07/12/17 Salmeterol/Fluticasone [Advair 100Mcg/50Mcg -] 1 inh PO BID #1 diskus 07/12/17 This patient is new to me today: No Emergency Visit: Yes ED Registration Date: 07/11/17 Care time: The patient presented to the Emergency Department on the above date and was hospitalized for further evaluation of their emergent condition. Critical Care patient: No - Discharge Referral Referred to [facility] No
[2017-07-12] MEDS: FLUTICASONE/SALMETEROL 100 MCG/50 MCG DISKUS IH SCH ×2 (15:04→21:40)
--- NOTE | 2017-07-12 15:36 | PN ---
Teaching Attending Note Name of Resident: Venancio Lazo ATTENDING PHYSICIAN STATEMENT I saw and evaluated the patient. I reviewed the resident's note and discussed the case with the resident. I agree with the resident's findings and plan as documented. SUBJECTIVE: Has cough , cont to feel slight SOB and wheezing . OBJECTIVE: NAD , AAOX3.MMM. CV: RRR. TTP over anterior and L chest wall Lungs : scattered wheezing , cough ext :no erythema or edema on Legs Neuro : EOMI, round equal pupils , reactive to light , nl facial sensation . Uvula at mid line . Tongue at mid line. strength : RUE: 5/5 at shoulder shrug, 5/5 at shoulder abduction, 5/5 biceps , 5/5 triceps , 5/5 wrist flexion and extension . weak hand teller coordinator. LUE: L shoulder shrug 0 . shoulder abduction 4/5 . 5/5 at biceps, 5/5 at triceps , 5/5 wrist flexion and extension . weak hand teller coordinator RLE: 4/5 hip flexion, 5/5 knee flexion and extension, limited range of motion at ankle due to pain. LLE: 5/5 in hip flexion, 5/5 knee flexion and extension, 5/5 dorsiflexion and plantar flexion Reflexes: 2+ biceps , 2+ knee jerk b/l . Sensation : NL. gait: pt walked few steps , claimed not to be steady and returned to bed. Per RN : she was seen to walk normally with some limb ( R ankle strain ) ASSESSMENT AND PLAN: 32 y/o lady with h/o asthma who presented with LOC seizure like activity. 1- Seizure like activity: Not clear seizure vs psudoseisure - MRI with no intracranial etiology - seen by neuro , no need for AED - f/u EEG as out pt withDr. Fan. reading MD not available - no findings on MRI to explain LUE weakness ( seen by RN using her L arm normally) - no findings to explain inability to walk, ( seen ambulating fine by RN) 2- L sided CP: Likely MS in etiology due to TTP. no ischemic changes on EKG Echo pending 3- RR ankle pain and edema : could be due to sprain . - xray no fx . 4- Mild acute ASthma exacerbation :still has good air entry start a short prednisone taper f/u as out pt with pulmonary for pFTs . add advair to her home regimen prescribe her inhalers and NEbs dispo: since her inability to walk is felt to be malingering , she is being dc home today after echo results are back f/u with neuro , pulm, PCP , and psych
[2017-07-12] MEDS ORDERED: ZOLPIDEM TARTRATE 5 MG TABLET PO ONE (21:13)
--- NOTE | 2017-07-12 22:27 | EKG ---
Test Reason : Blood Pressure : / mmHG Vent. Rate : 088 BPM Atrial Rate : 088 BPM P-R Int : 172 ms QRS Dur : 084 ms QT Int : 366 ms P-R-T Axes : 057 -39 034 degrees QTc Int : 442 ms NORMAL SINUS RHYTHM LEFT AXIS DEVIATION RSR' IN V1 ABNORMAL ECG WHEN COMPARED WITH ECG OF 11-JUL-2017 08:28, NO SIGNIFICANT CHANGE WAS FOUND Confirmed by GLEN JEAN MD ([id number]) on 07/12/2017 10:27:06 PM Referred By: Confirmed By:GLEN JEAN MD
[2017-07-13 07:45] VITALS: TEMP 98.1
[2017-07-13 10:23] LABS: MAGNESIUM 1.8 mg/dL (1.8-2.4)
[2017-07-13] MEDS ORDERED: PT OWN MED DRAWER 7, Y5N ONE (10:23)
[2017-07-13 10:24] LABS: PHOSPHOROUS 3.8 mg/dL (2.5-4.9)
[2017-07-13] MEDS: FLUTICASONE/SALMETEROL 100 MCG/50 MCG DISKUS IH SCH (10:26)
[2017-07-13] MEDS: ENOXAPARIN NA (PORCINE) 40 MG/0.4 ML DISP.SYRIN SQ SCH (10:26)
[2017-07-13] MEDS: predniSONE 20 MG TABLET (UD) PO SCH ×2 (10:26→11:13)
[2017-07-13 10:47] VITALS: BP 122/72; PULSE 79
--- NOTE | 2017-07-13 13:03 | PN ---
Teaching Attending Note Name of Resident: Venancio Lazo ATTENDING PHYSICIAN STATEMENT I saw and evaluated the patient. I reviewed the resident's note and discussed the case with the resident. I agree with the resident's findings and plan as documented. SUBJECTIVE: Patient is comfortable with no further seizure activity. Has no new complains. OBJECTIVE: Vital Signs Temperature 98.1 F 07/13/17 06:00 Pulse Rate 79 07/13/17 10:00 Respiratory Rate 18 07/13/17 10:00 Blood Pressure 122/72 07/13/17 10:00 O2 Sat by Pulse Oximetry (%) 96 07/13/17 09:00 CBCD WBC 6.5 K/mm3 (4.0-10.0) D 07/12/17 07:00 RBC 4.19 M/mm3 (3.60-5.2) 07/12/17 07:00 Hgb 11.9 GM/dL (10.7-15.3) 07/12/17 07:00 Hct 36.8 % (32.4-45.2) 07/12/17 07:00 MCV 87.9 fl (80-96) 07/12/17 07:00 MCHC 32.4 g/dl (32.0-36.0) 07/12/17 07:00 RDW 13.2 % (11.6-15.6) 07/12/17 07:00 Plt Count 157 K/MM3 (134-434) D 07/12/17 07:00 MPV 9.6 fl (7.5-11.1) 07/12/17 07:00 CMP Sodium 140 mmol/L (136-145) 07/12/17 07:00 Potassium 3.6 mmol/L (3.5-5.1) 07/12/17 07:00 Chloride 107 mmol/L (98-107) 07/12/17 07:00 Carbon Dioxide 25 mmol/L (21-32) 07/12/17 07:00 Anion Gap 8 (8-16) 07/12/17 07:00 BUN 12 mg/dL (7-18) D 07/12/17 07:00 Creatinine 0.6 mg/dL (0.55-1.02) 07/12/17 07:00 Creat Clearance w eGFR > 60 (>60) 07/11/17 06:48 Random Glucose 79 mg/dL (74-106) 07/12/17 07:00 Calcium 8.7 mg/dL (8.5-10.1) 07/12/17 07:00 Total Bilirubin 0.2 mg/dL (0.2-1.0) D 07/11/17 06:48 AST 18 U/L (15-37) 07/11/17 06:48 ALT 24 U/L (12-78) 07/11/17 06:48 Alkaline Phosphatase 74 U/L (45-117) D 07/11/17 06:48 Total Protein 7.9 g/dl (6.4-8.2) D 07/11/17 06:48 Albumin 3.9 g/dl (3.4-5.0) D 07/11/17 06:48 CARDIAC ENZYMES Creatine Kinase 88 IU/L (26-192) 07/11/17 15:30 Troponin I < 0.02 ng/ml (0.00-0.05) 07/11/17 15:30 Current Medications Generic Name Dose Route Start Last Admin Trade Name Freq PRN Reason Stop Dose Admin Acetaminophen 650 mg 07/11/17 16:38 Tylenol - PO Q6H PRN FEVER OR PAIN Albuterol/Ipratropium 1 amp 07/11/17 16:16 07/12/17 22:45 Duoneb - NEB 1 amp Q4H PRN Administration SHORTNESS OF BREATH Enoxaparin Sodium 40 mg 07/12/17 10:00 07/13/17 10:26 Lovenox - SQ 40 mg DAILY DANTE Administration Prednisone 40 mg 07/13/17 10:00 07/13/17 11:13 Deltasone - PO Not Given DAILY DANTE Fluticasone/Salmeterol 1 puff 07/12/17 12:30 07/13/17 10:26 Advair 100mcg/50mcg - IH 1 puff BID DANTE Administration Home Medications Medication Instructions Recorded Albuterol 0.083% Nebulizer Altagracia 1 neb NEB PRN #1 vial 07/12/17 [Ventolin 0.083% Nebulizer Soln -] Albuterol Sulfate [Proair 90 mcg IH Q4H PRN #1 aer.pow.ba 07/12/17 Respiclick] Nebulizer [Nasoneb Nasal Nebulizer] 1 each MC PRN #1 each 07/12/17 Prednisone [Deltasone] 20 mg PO DAILY #12 tablet 07/12/17 Salmeterol/Fluticasone [Advair 1 inh PO BID #1 diskus 07/12/17 100Mcg/50Mcg -] Walker [Ultra-Light Rollator] 1 each MC DAILY #1 each 07/13/17 PE: per resident's note ASSESSMENT AND PLAN: Patient is a 32 y/o lady with h/o asthma who presented with LOC ; seizure like activity. # Acute Seizure like activity: No obvious reasons except that patient states that she has no time to eat when she is at work, most likely due to hypoglycemic event. MRI with no intracranial etiology. seen by neuro , f/u EEG as out pt with Dr. Fan. # s/p L sided CP: no ischemic changes on EKG; Echo EJF 67%, mild MVP reported by environmental tech , follow up with environmental tech as an outpatient. # Right ankle pain and edema resolved. xray no fx . # Mild acute Asthma exacerbation being discharged on a prednisone taper dose . f/u as out pt with pulmonary for pFTs . continue advair to her home regimen continue rest of home meds.
--- NOTE | 2017-07-15 09:17 | EKG ---
Test Reason : Blood Pressure : / mmHG Vent. Rate : 090 BPM Atrial Rate : 090 BPM P-R Int : 166 ms QRS Dur : 080 ms QT Int : 368 ms P-R-T Axes : 068 -13 037 degrees QTc Int : 450 ms NORMAL SINUS RHYTHM POSSIBLE LEFT ATRIAL ENLARGEMENT WHEN COMPARED WITH ECG OF 01-MAR-2014 05:12, NO SIGNIFICANT CHANGE WAS FOUND Confirmed by DAVE COUCH MD ([id number]) on 07/15/2017 9:17:06 AM Referred By: Confirmed By:DAVE COUCH MD
== END 2017-07-13 13:39 | disposition home or self-care (01) | DRG 861 ==
LOC: JER 04:28 → JERBED 10:15 → J5S 12:04 → OBSVTOIN 12:14
PROVIDERS: ADMIT Internal Medicine; ATTEND Internal Medicine
DX: R41.82 Altered mental status, unspecified (principal); R56.9 Unspecified convulsions; R07.9 Chest pain, unspecified; R00.0 Tachycardia, unspecified; J45.901 Unspecified asthma with (acute) exacerbation; M25.571 Pain in right ankle and joints of right foot
CPT/HCPCS: 36415; 70450-TC; 70551-TC; 71010-TC; 71101-TC; 73610-TC-RT; 73630-TC-RT; 80048; 80053; 80307; 82150; 83605; 83690; 83735; 84100; 84146; 84484; 84702; 84703; 85025; 90670; 93005; 93010; 93306-TC; 94640; 95816; 97116-GP; 97161-GP; 99283-25; G0378

== ENCOUNTER 2017-10-21 10:30 | Emergency (ER) | payer OTHER ==
[2017-10-21 11:14] VITALS: TEMP 98.4; BMI 27.4
--- NOTE | 2017-10-21 11:19 | PDOC ---
History of Present Illness - General Chief Complaint: Pain Stated Complaint: Abdominal pain Time Seen by Provider: 10/21/17 11:16 History Source: Patient - History of Present Illness Initial Comments: 10/21/17 12:04 Patient is a 32 y.o. female with no known PMH who presents to the ED today c/o 2 day h/o of intermittent "burning" epigastric pain with associated non-bloody emesis and episodes of loose stool. Patient denies any fevers/chills, sick contacts or recent travel. NKDA Surgical: R torn meniscus repair (2017) PMD: None - will refer to IM resident clinic Past History - Past Medical History Allergies/Adverse Reactions: Allergies Allergy/AdvReac Type Severity Reaction Status Date / Time No Known Allergies Allergy Verified 10/21/17 12:04 Home Medications: Ambulatory Orders Famotidine [Pepcid] 20 mg PO BID PRN #30 tablet 10/21/17 COPD: No - Reproductive History (#): 2 Para: 2 - Immunization History Td Vaccination: Yes Immunization Up to Date: Yes - Suicide/Smoking/Psychosocial Hx Smoking Status: No Smoking History: Never smoked Years of Tobacco Use: 0 Have you smoked in the past 12 months: No Number of Cigarettes Smoked Daily: 0 Cigars Per Day: 0 Information on smoking cessation initiated: No Hx Alcohol Use: No Drug/Substance Use Hx: No Substance Use Type: None Hx Substance Use Treatment: No Review of Systems - Review of Systems Constitutional: No: Chills, Fever Respiratory: No: Shortness of Breath Cardiac (ROS): No: Chest Pain ABD/GI: Yes: Diarrhea, Nausea, Vomiting. No: Constipated, Rectal Bleeding : No: Burning, Dysuria All Other Systems: Reviewed and Negative *Physical Exam - Vital Signs Last Vital Signs Temp Pulse Resp BP Pulse Ox 98.4 F 75 18 119/69 100 10/21/17 11:10 10/21/17 11:10 10/21/17 11:10 10/21/17 11:10 10/21/17 11:10 - Physical Exam General Appearance: Yes: Nourished, Appropriately Dressed HEENT: positive: EOMI, BUFFY Neck: positive: Trachea midline, Supple. negative: Lymphadenopathy (R), Lymphadenopathy (L) Respiratory/Chest: positive: Lungs Clear, Normal Breath Sounds Cardiovascular: positive: S1, S2 Gastrointestinal/Abdominal: positive: Normal Bowel Sounds, Tender (Epigastric tenderness on superficial and deep palpation), Soft, Tenderness. negative: Hernia, Mass Musculoskeletal: negative: CVA Tenderness (R), CVA Tenderness (L) Extremity: positive: Normal Capillary Refill Integumentary: positive: Normal Color, Dry, Warm Neurologic: positive: Fully Oriented, Alert ED Treatment Course - LABORATORY CBC & Chemistry Diagram: 10/21/17 12:15 10/21/17 12:15 Medical Decision Making - Medical Decision Making 10/21/17 14:31 Patient is a 32 y.o. female with no PMH who presents c/o 2 day h/o GI symptoms - emesis, diarrhea + abdominal pain. On PE patient is hemodynamically stable however displays significant epigastric tenderness w/ (-) Lipscomb's sign. Low clinical suspicion for acute abdomen, given patient's significant TTP concern for biliary disease vs. early appendicitis. U/S Abdomen/Pelvis negative for cholelithiasis. Patient symptomatically improved with Famotidine. Will discharge home with return precautions adn f/u with PCP for including evaluation of possible GERD/PUD. 10/21/17 20:49 *DC/Admit/Observation/Transfer Diagnosis at time of Disposition: Dyspepsia - Discharge Dispostion Disposition: HOME Condition at time of disposition: Good Admit: No - Prescriptions Prescriptions: Famotidine [Pepcid] 20 mg PO BID PRN #30 tablet PRN Reason: Pain - Referrals Referrals: John Paul San MD [Staff Physician] - - Patient Instructions Printed Discharge Instructions: DI for Abdominal Pain-Adult Additional Instructions: A prescription for Pepcid has been called to your pharmacy. Please take this medication as needed for burning abdominal pain. A referral to a primary care physician, Dr. Jaswinder Coker, is included in your discharge instructions. Please call to make an appointment for establishment of primary care. Please return to the Emergency Department for any new/worsening/concerning symptoms. - Post Discharge Activity Forms/Work/School Notes: Back to Work
--- NOTE | 2017-10-21 11:21 | PDOC ---
Attending Attestation - Resident Resident Name: Marleni Leong - HPI HPI: 10/21/17 12:28 Pt presents to the ED complaining of severe, burning epigastric pain, persistent nausea and profuse watery diarrhea. Denies fevers. No history of similar symptoms. - Physicial Exam PE: 10/21/17 12:39 Agree with resident exam. + tenderness in the epigastrium without guarding or rebound. - Medical Decision Making 10/21/17 12:39 Pt presents to the ED complaining of abdominal pain and tenderness, along with nausea, vomiting and diarrhea. Diffferential diagnosis includes gastroenteritis , peptic ulcer disease, pancreatitis, biliary disease, less likely ectopic. Will check labs, treat with Iv hydration and nausea control, check RUQ US and reassess.
[2017-10-21] MEDS ORDERED: SODIUM CHLORIDE 0.9% 1000 ML INFUS.BAG IV ONE (11:43)
[2017-10-21] MEDS ORDERED: ONDANSETRON 4 MG/2 ML VIAL IVPUSH ONE (11:51)
[2017-10-21] MEDS ORDERED: ONDANSETRON 4 MG/2 ML VIAL ONE (11:54)
[2017-10-21 11:57] LABS: BASO % 0.5 % (0-2.0); EOS % 1.4 % (0-4.5); HEMATOCRIT 44.1 % (32.4-45.2); HEMOGLOBIN 14.1 GM/dL (10.7-15.3); LYMPH % 33.1 % (8-40); MCH 27.6 pg (25.7-33.7); MCHC 32.1 g/dl (32.0-36.0); MEAN CELL VOLUME 86.1 fl (80-96); MEAN PLT VOLUME 10.2 fl (7.5-11.1); MONO % 6.9 % (3.8-10.2); NEUT % 58.1 % (42.8-82.8); PLATELET COUNT 216 K/MM3 (134-434); RBC 5.11 M/mm3 (3.60-5.2); RDW 12.8 % (11.6-15.6); WHITE BLOOD COUNT 7.6 K/mm3 (4.0-10.0)
[2017-10-21 12:22] LABS: BASO % 0.2 % (0-2.0); EOS % 1.3 % (0-4.5); HEMATOCRIT 39.5 % (32.4-45.2); HEMOGLOBIN 12.6 GM/dL (10.7-15.3); LYMPH % 33.7 % (8-40); MCH 27.5 pg (25.7-33.7); MCHC 31.8 g/dl (32.0-36.0); MEAN CELL VOLUME 86.5 fl (80-96); MONO % 6.5 % (3.8-10.2); NEUT % 58.3 % (42.8-82.8); PLATELET COUNT 186 K/MM3 (134-434); RBC 4.57 M/mm3 (3.60-5.2); RDW 12.8 % (11.6-15.6); WHITE BLOOD COUNT 6.9 K/mm3 (4.0-10.0)
[2017-10-21 12:25] LABS: URINE APPEARANCE SLCLOUDY; URINE BILIRUBIN NEGATIVE (NEGATIVE); URINE BLOOD NEGATIVE (NEGATIVE); URINE COLOR YELLOW; URINE GLUCOSE (UA) NEGATIVE (NEGATIVE); URINE KETONE NEGATIVE (NEGATIVE); URINE LEUK ESTERASE TRACE (NEGATIVE); URINE NITRITE NEGATIVE (NEGATIVE); URINE PROTEIN NEGATIVE (NEGATIVE); URINE UROBILINOGEN NEGATIVE mg/dL (0.2-1.0)
[2017-10-21] MEDS ORDERED: FAMOTIDINE IV 20 MG/12 ML VIAL IVPUSH ONE (12:30)
[2017-10-21 12:31] LABS: EPI CELLS FEW /HPF (FEW); URINE BACTERIA RARE /hpf (NONE SEEN); URINE MUCUS MANY
[2017-10-21 12:46] LABS: ALBUMIN 3.7 g/dl (3.4-5.0); ANION GAP 8 (8-16); BLOOD UREA NITROGEN 12 mg/dL (7-18); CALCIUM 8.3 mg/dL (8.5-10.1); CHLORIDE 104 mmol/L (98-107); CO2 27 mmol/L (21-32); CREATININE 0.7 mg/dL (0.55-1.02); GLUCOSE,RANDOM 94 mg/dL (74-106); LIPASE 129 U/L (73-393); SGPT/ALT 25 U/L (12-78); SODIUM 139 mmol/L (136-145)
[2017-10-21 12:49] LABS: ALK PHOS 67 U/L (45-117); BILIRUBIN,TOTAL 0.5 mg/dL (0.2-1.0); SGOT/AST 19 U/L (15-37); TOT PROT 7.5 g/dl (6.4-8.2)
[2017-10-21 12:50] LABS: POTASSIUM 4.4 mmol/L (3.5-5.1)
[2017-10-21] MEDS ORDERED: FAMOTIDINE 20 MG/50 ML IVPB 20 MG/50 ML MG IVPB ONE (12:52)
[2017-10-21] MEDS ORDERED: MAG HYDROX/AL HYDROX/SIMETH 30 ML UNIT-DOSE CUP PO ONE (14:54)
[2017-10-21] MEDS ORDERED: MAG HYDROX/AL HYDROX/SIMETH 30 ML UNIT-DOSE CUP ONE (14:54)
[2017-10-21 15:02] VITALS: BP 100/72; PULSE 70
--- NOTE | 2017-10-21 15:12 | EKG ---
Test Reason : Blood Pressure : / mmHG Vent. Rate : 055 BPM Atrial Rate : 055 BPM P-R Int : 148 ms QRS Dur : 082 ms QT Int : 418 ms P-R-T Axes : 039 -24 020 degrees QTc Int : 399 ms SINUS BRADYCARDIA OTHERWISE NORMAL ECG Confirmed by MD KAVITHA, SAWYER ([id number]) on 10/21/2017 3:12:43 PM Referred By: Confirmed By:SAWYER PLUMMER MD
== END 2017-10-21 15:02 | disposition home or self-care (01) ==
LOC: JER 10:30
PROC: 3E033GC Introduction of Other Therapeutic Substance into Peripheral Vein, Percutaneous Approach (ICD-10-PCS; principal; 2017-10-21)
PROC: 3E033GC Introduction of Other Therapeutic Substance into Peripheral Vein, Percutaneous Approach (ICD-10-PCS; 2017-10-21)
DX: R10.13 Epigastric pain (principal)
CPT/HCPCS: 36415; 76700-TC; 80053; 81003; 81015; 83690; 84703; 85025; 93005; 93010; 96365; 96375; 99283-25

== ENCOUNTER 2017-12-29 00:05 | Emergency (ER) | payer OTHER ==
[2017-12-29 00:28] VITALS: BP 116/63; PULSE 85; TEMP 97.6; BMI 25.7
[2017-12-29] MEDS ORDERED: IBUPROFEN 600 MG TABLET (FP) PO STA (01:07)
[2017-12-29] MEDS ORDERED: AMOX TR/POT CLAV 500MG/125MG TABLETS (FP) PO ONE (01:07)
--- NOTE | 2017-12-29 01:07 | PDOC ---
History of Present Illness - General History Source: Patient <Doug Singh - Last Filed: 12/29/17 01:08> - General History Source: Patient Exam Limitations: No Limitations - History of Present Illness Initial Comments: 12/29/17 01:13 The patient is a 32-year-old female, with no significant past medical history, who presents to the ED with foreign body sensation today. The patient was trying to clean her left ear with a cotton swab and now has a piece of cotton stuck in her ear canal. The patient denies having any other symptoms at this time. Allergies: NKDA Surgical: Right torn meniscus repair (2017) PMD: None - will refer to IM resident clinic <RollyMaria Luisa - Last Filed: 12/29/17 01:17> - General Chief Complaint: Foreign Body (FB) Stated Complaint: EAR PAIN Time Seen by Provider: 12/29/17 01:07 Past History - Past Medical History COPD: No - Reproductive History (#): 2 Para: 2 - Immunization History Td Vaccination: Yes Immunization Up to Date: Yes - Suicide/Smoking/Psychosocial Hx Smoking Status: No Smoking History: Never smoked Years of Tobacco Use: 0 Have you smoked in the past 12 months: No Number of Cigarettes Smoked Daily: 0 Cigars Per Day: 0 Information on smoking cessation initiated: No Hx Alcohol Use: No Drug/Substance Use Hx: No Substance Use Type: None Hx Substance Use Treatment: No <Doug Singh - Last Filed: 12/29/17 01:08> <RollyMaria Luisa - Last Filed: 12/29/17 01:17> - Past Medical History Allergies/Adverse Reactions: Allergies Allergy/AdvReac Type Severity Reaction Status Date / Time No Known Allergies Allergy Verified 12/29/17 00:27 Home Medications: Ambulatory Orders Famotidine [Pepcid] 20 mg PO BID PRN #30 tablet 10/21/17 Amox-Tr/K Cl [Augmentin 500Mg Tablet] 1 tab PO BID #14 tablet 12/29/17 Ibuprofen [Motrin] 600 mg PO TID #30 tablet 12/29/17 Review of Systems - Review of Systems Able to Perform ROS?: Yes Comments:: 12/29/17 01:14 CONSTITUTIONAL: Absent: fever, no chills, no fatigue EYES: Absent: visual changes ENT: Present: foreign body in left ear Absent: no sore throat CARDIOVASCULAR: Absent: chest pain, no palpitations RESPIRATORY: Absent: cough, no SOB GI: Absent: abdominal pain, no nausea, no vomiting, no constipation, no diarrhea GENITOURINARY: Absent: dysuria, no frequency, no hematuria MUSKULOSKELETAL: Absent: back pain, no arthralgia, no myalgia SKIN: Absent: rash NEURO: Absent: headache <Maria Luisa Lofton - Last Filed: 12/29/17 01:17> *Physical Exam - Vital Signs Last Vital Signs Temp Pulse Resp BP Pulse Ox 97.6 F 85 20 116/63 100 12/29/17 00:27 12/29/17 00:27 12/29/17 00:27 12/29/17 00:27 12/29/17 00:27 <Doug Singh - Last Filed: 12/29/17 01:08> - Vital Signs Last Vital Signs Temp Pulse Resp BP Pulse Ox 97.6 F 85 20 116/63 100 12/29/17 00:27 12/29/17 00:27 12/29/17 00:27 12/29/17 00:27 12/29/17 00:27 - Physical Exam Comments: 12/29/17 01:16 GENERAL: Well-appearing, well-nourished. No apparent distress. HEENT: (+)The patient has a small piece of cotton adhering to the inferior aspect of the the left auditory canal. Normocephalic, atraumatic. PERRL, EOM intact. CARDIOVASCULAR: Normal S1, S2. Regular rate and rhythm. PULMONARY: Clear to auscultation bilaterally. ABDOMEN: Soft, non-distended, non-tender. EXTREMITIES: Normal ROM in all four extremities. No gross deformities. SKIN: Warm, dry. No rash NEUROLOGICAL: No focal neurological deficits. <Maria Luisa Lofton - Last Filed: 12/29/17 01:17> Medical Decision Making - Medical Decision Making 12/29/17 01:11 Dr. Singh: The scribe's documentation has been prepared under my direction and personally reviewed by me in its entirery. I confirm that the note above accurately reflects all work, treatment, procedures, and medical decision making performed by me. <Doug Singh - Last Filed: 12/29/17 01:08> *DC/Admit/Observation/Transfer - Discharge Dispostion Admit: No <Doug Singh - Last Filed: 12/29/17 01:08> - Attestations Scribe Attestion: 12/29/17 01:17 Documentation prepared by Maria Luisa Lofton, acting as medical i d sales for Doug Singh MD. <Maria Luisa Lofton - Last Filed: 12/29/17 01:17> Diagnosis at time of Disposition: Foreign body in left ear - Discharge Dispostion Disposition: HOME Condition at time of disposition: Stable - Prescriptions Prescriptions: Amox-Tr/K Cl [Augmentin 500Mg Tablet] 1 tab PO BID #14 tablet Ibuprofen [Motrin] 600 mg PO TID #30 tablet - Referrals Referrals: Gideon Humphries MD [Staff Physician] - - Patient Instructions Printed Discharge Instructions: DI for Removal of Foreign Body From Ear, DI for Ear Pain-Adult Additional Instructions: Please follow up with the ENT is pain to left ear doesn't improve. TAke medication as directed.
[2017-12-29] MEDS ORDERED: AMOX TR/POT CLAV 500MG/125MG TABLETS (FP) ONE (01:11)
[2017-12-29] MEDS ORDERED: IBUPROFEN 400 MG TABLET (FP) PO ONE (01:12)
== END 2017-12-29 01:16 | disposition home or self-care (01) ==
LOC: JER 00:05
DX: T16.2XXA Foreign body in left ear, initial encounter (principal); X58.XXXA Exposure to other specified factors, initial encounter; Y93.E8 Activity, other personal hygiene; Y92.038 Other place in apartment as the place of occurrence of the external cause
CPT/HCPCS: 99282-25

== ENCOUNTER 2020-01-13 16:52 | Emergency (ER) | payer OTHER ==
[2020-01-13 17:10] VITALS: BP 120/66; PULSE 73; TEMP 98.3; BMI 27.4
== END 2020-01-13 18:30 | disposition home or self-care (01) ==
LOC: FER 16:52
DX: R06.4 Hyperventilation (principal); F41.9 Anxiety disorder, unspecified
CPT/HCPCS: 71045-TC-FY; 99283-25

== ENCOUNTER 2020-04-02 10:23 | Emergency (ER) | payer OTHER ==
--- NOTE | 2020-04-02 10:30 | PDOC ---
History of Present Illness - General Chief Complaint: Pain Stated Complaint: ABDOMINAL CRAMPING PT IS Time Seen by Provider: 04/02/20 10:30 - History of Present Illness Initial Comments: 04/02/20 10:43 Chief complaint: Pelvic pain HPI: Crampy pelvic pain for 2 days, worse today. Approximately 6 weeks by ultrasound last week. Sees Dr. Sanchez, and ultrasound when she first suspected , but has not been evaluated again since the cramps began. 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 Wants to continue with the if possible. No recent vaginal bleeding, small amount of greenish discharge yesterday. Burning with urination for about 1 week, urinalysis was reportedly negative. Review of systems: No fever/chills, URI symptoms, sore throat, cough, chest pain, shortness of breath, diarrhea or constipation. Urinary symptoms as noted above. Continuous nausea and retching thought due to morning sickness. Remainder of systems reviewed and negative Past medical history: Denies medical or surgical problems past or present, home medication. 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 Family history: Reviewed and noncontributory including early coronary artery disease, metabolic diseases including diabetes, cancer, coagulation disorders, blood clots including DVT and PE. Physical exam: Alert and oriented x3, well-developed well-nourished, no acute distress, cooperative Afebrile, vital signs normal PERRLA, fundi benign, ENT clear Neck supple without bruit mass or nodes Chest clear CV regular without murmur rub or gallop. No tachycardia Abdomen nondistended. Bowel sounds normal. Soft without mass tenderness organomegaly. No CVAT Extremities no CCE Skin clear, no rash, adequate turgor and wet mucous membranes Neurological intact, including normal reflexes, no clonus. Impression: Early , cramping, without vaginal bleeding, rule out ectopic, rule out threatened AB. Plan: CBC, chemistries, beta hCG, ultrasound and further evaluation and treatment depending on results. Timely [facility] follow-up. Past History - Medical History Allergies/Adverse Reactions: Allergies Allergy/AdvReac Type Severity Reaction Status Date / Time No Known Allergies Allergy Verified 04/02/20 10:25 Home Medications: Ambulatory Orders Cephalexin Monohydrate [Keflex] 250 mg PO Q8H #30 capsule 04/02/20 Ondansetron [Zofran *Odt*] 4 mg SL TID PRN #10 od.tablet 04/02/20 COPD: No - Reproductive History (#): 2 Para: 2 - Immunization History Td Vaccination: Yes Immunization Up to Date: Yes - Psycho-Social/Smoking History Smoking Status: No Smoking History: Never smoked Years of Tobacco Use: 0 Have you smoked in the past 12 months: No Number of Cigarettes Smoked Daily: 0 Cigars Per Day: 0 ED Treatment Course - LABORATORY CBC & Chemistry Diagram: 04/02/20 10:55 04/02/20 11:15 Medical Decision Making - Medical Decision Making 04/02/20 14:09 CBC, chemistries no significant abnormalities Urinalysis 20-40 white blood cells, coupled with patient's dysuria, probably indicating UTI of early . Urine culture sent. Ultrasound shows normal intrauterine consistent with prior dates. No free fluid. Small ovarian cyst, no sign of ectopic. Patient's nausea was controlled on Zofran. Antibiotics for UTI were prescribed pending culture results. Instructed to follow-up with Dr. Sanchez, her [facility] physician, as soon as possible, to review results and direct further treatment. To return to ER if pain becomes more severe or if there is lightheadedness, dizziness, or bleeding. Discharge - Discharge Information Problems reviewed: Yes Clinical Impression/Diagnosis: Threatened UTI (urinary tract infection) Qualifiers: Urinary tract infection type: acute cystitis Hematuria presence: without hematuria Qualified Code(s): N30.00 - Acute cystitis without hematuria Condition: Stable Disposition: HOME - Admission No - Additional Discharge Information Prescriptions: Cephalexin Monohydrate [Keflex] 250 mg PO Q8H #30 capsule Ondansetron [Zofran *Odt*] 4 mg SL TID PRN #10 od.tablet PRN Reason: Nausea And/Or Vomiting - Follow up/Referral Referrals: Chip Sanchez MD [Primary Care Provider] - Call tomorrow - Patient Discharge Instructions Patient Printed Discharge Instructions: DI for Threatened , DI for Urinary Tract Infection (UTI) Additional Instructions: Bedrest. See your [facility] doctor immediately or return to ER if there is increased pain, bleeding, lightheadedness or dizziness. Otherwise see your [facility] doctor as soon as possible. It appears likely that with your burning on urination and white blood cells in your urinalysis, you have a UTI. A urine culture has been sent for confirmation. Begin antibiotics as directed and check urine culture results in 2 days. Discontinuation of the antibiotic or change in antibiotic may be advised at that time. - Post Discharge Activity
[2020-04-02 10:48] VITALS: BMI 28.2
[2020-04-02 11:21] LABS: BASO % 2.3 % (0-2.0); EOS % 0.8 % (0-4.5); HEMATOCRIT 39.6 % (32.4-45.2); HEMOGLOBIN 13.4 GM/dl (10.7-15.3); LYMPH % 22.2 % (8-40); MCH 28.1 pg (25.7-33.7); MCHC 33.8 g/dl (32.0-36.0); MEAN CELL VOLUME 83.1 fl (80-96); MEAN PLT VOLUME 10.8 fl (7.5-11.1); MONO % 4.2 % (3.8-10.2); NEUT % 70.5 % (42.8-82.8); PLATELET COUNT 189 K/MM3 (134-434); RBC 4.76 M/mm3 (3.60-5.2); WHITE BLOOD COUNT 10.8 K/mm3 (4.0-10.8)
[2020-04-02 11:35] LABS: EPITHELIAL CELLS MANY /hpf
[2020-04-02] MEDS ORDERED: ONDANSETRON *ODT* 4 MG TABLET ONE (11:45)
[2020-04-02 11:52] LABS: ALBUMIN 3.9 g/dl (3.4-5.0); BILIRUBIN,TOTAL 0.7 mg/dl (0.2-1); CALCIUM 8.7 mg/dl (8.5-10); CREATININE 0.6 mg/dl (0.55-1.3); POTASSIUM 4.2 mmol/L (3.5-5.1); TOT PROT 7.1 g/dl (6.4-8.2)
[2020-04-02] MEDS ORDERED: ONDANSETRON *ODT* 4 MG TABLET SL ONE (12:00)
[2020-04-02 13:18] VITALS: BP 100/68; PULSE 57; TEMP 98.4
== END 2020-04-02 13:29 | disposition home or self-care (01) ==
LOC: FER 10:23
DX: O20.0 Threatened abortion (principal); O23.591 Infection of other part of genital tract in pregnancy, first trimester; Z3A.01 Less than 8 weeks gestation of pregnancy
CPT/HCPCS: 36415; 76801-TC; 80053; 81003; 81015; 84702; 84703; 85025; 87086; 87186; 99284-25; Q0162

== ENCOUNTER 2020-04-19 00:41 | Emergency (ER) | payer OTHER ==
--- NOTE | 2020-04-19 00:48 | PDOC ---
History of Present Illness - General Chief Complaint: Nausea/Vomiting Stated Complaint: NAUSEA/VOMITING Time Seen by Provider: 04/19/20 00:46 - History of Present Illness Initial Comments: 04/19/20 01:19 This 34-year-old woman, G3, P2 presents with several hour history of persistent nausea and vomiting. Patient states that she began vomiting and at approximately 2 PM today, soon after eating a meal prepared outside of her home. Since then, she has had multiple episodes of vomiting, (semi-digested food and bile) no blood or coffee grounds reported in vomitus. No diarrhea or fever/chills reported. She has burning epigastric/chest pain. Patient was seen here approximately 2 weeks ago with dysuria; UA/urine culture positive for UTI. She was given Keflex for treatment. She completed the course of antibiotics but continues to have dysuria. Examination of the culture and sensitivity shows that E. coli was predominant organism and was sensitive to all antibiotics. She denies any vaginal bleeding or discharge; no lower abdominal cramping reported Past History - Medical History Allergies/Adverse Reactions: Allergies Allergy/AdvReac Type Severity Reaction Status Date / Time No Known Allergies Allergy Verified 04/02/20 10:25 Home Medications: Ambulatory Orders Miconazole Nitrate 1 applic TP DAILY #1 tube 04/19/20 Ondansetron [Zofran *Odt*] 4 mg SL BID PRN #6 od.tablet 04/19/20 COPD: No - Reproductive History (#): 2 Para: 2 - Immunization History Td Vaccination: Yes Immunization Up to Date: Yes - Psycho-Social/Smoking History Smoking Status: No Smoking History: Never smoked Years of Tobacco Use: 0 Have you smoked in the past 12 months: No Number of Cigarettes Smoked Daily: 0 Cigars Per Day: 0 Review of Systems - Review of Systems Able to Perform ROS?: Yes Comments:: 12 point review of systems is negative except for what is noted in the history of present illness *Physical Exam - Physical Exam GENERAL: Adult female, alert and oriented x3 no acute distress HEAD: Normal with no signs of trauma. EYES: PERRLA, EOMI, sclera anicteric, conjunctiva clear. ENT: Ears normal, nares patent, oropharynx clear without exudates. Dry mucous membranes. NECK: Normal range of motion, supple without lymphadenopathy, JVD, or masses. LUNGS: Breath sounds equal, clear to auscultation bilaterally. No wheezes, and no crackles. HEART:Regular rate and rhythm, normal S1 and S2 without murmur, rub or gallop. ABDOMEN:.normal bowel sounds No guarding,tenderness or rebound.No masses No distention. EXTREMITIES: Normal range of motion, no edema. No clubbing or cyanosis. No erythema, or tenderness. NEUROLOGICAL: Cranial nerves II through XII grossly intact. Normal speech. No focal neurological deficits. SKIN: Warm, Dry, normal turgor, no rashes or lesions noted. ED Treatment Course - LABORATORY CBC & Chemistry Diagram: 04/19/20 01:00 04/19/20 01:00 Medical Decision Making - Medical Decision Making This 34-year-old woman, approximately 9 weeks , presents with several hour history of multiple episodes of nausea and vomiting. This began soon after patient ate midday meal and she believes she has "food poisoning". No diarrhea or fever reported. Exam as noted Patient received a liter of normal saline IV and Zofran 4 mg IV. CBC, chemistry profile, urinalysis and urine culture and sensitivity sent CBC notable for mild elevation of white blood cell count at 11,700; remainder of the CBC and chemistry profile is essentially normal Patient felt significantly better after IV hydration and Zofran IV. She feels ready to be discharged. Patient was discharged with recommendations to maintain clear liquid diet and advance to solid foods cautiously. She asked for small prescription of Zofran ODT which she uses only as needed for severe nausea. Prescription for Zofran ODT 4 mg (#8) to be used twice a day as needed for severe, persistent nausea was sent to her pharmacy. She also requested topical cream to be used in the vulvar area until results of the urinalysis/urine culture and sensitivity was available. Prescription for miconazole topical cream 1% sent to her pharmacy She should return to the ER if she has persistent vomiting or if she develops abdominal pain/fever After the patient was discharged, urinalysis results were available: Patient has 3+ leukocyte esterase on dip and microscopic analysis suggestive of UTI with WBCs and bacteria seen. Urine culture and sensitivity pending. Patient will be contacted when urine C and S completed. Discharge - Discharge Information Problems reviewed: Yes Clinical Impression/Diagnosis: Gastroenteritis Condition: Stable Disposition: HOME - Additional Discharge Information Prescriptions: Miconazole Nitrate 1 applic TP DAILY #1 tube Ondansetron [Zofran *Odt*] 4 mg SL BID PRN #6 od.tablet PRN Reason: Nausea - Follow up/Referral - Patient Discharge Instructions Patient Printed Discharge Instructions: DI for Vomiting -- Adult Additional Instructions: Clear liquid diet, advance to solid foods cautiously Zofran ODT 4 mg up to twice a day as needed for severe, persistent nausea Can take antacid 2 tablespoons up to 3 times a day as needed for heartburn type pain We will contact you if there is evidence that you have a urinary tract infection 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
[2020-04-19 01:10] VITALS: BP 111/70; PULSE 64; TEMP 98; BMI 28.3
[2020-04-19] MEDS ORDERED: ONDANSETRON 4 MG/2 ML VIAL IVPUSH ONE (01:11)
[2020-04-19] MEDS ORDERED: ONDANSETRON 4 MG/2 ML VIAL ONE (01:12)
[2020-04-19 01:58] LABS: ALBUMIN 3.7 g/dl (3.4-5.0); BILIRUBIN,TOTAL 0.3 mg/dL (0.2-1); BLOOD UREA NITROGEN 12.8 mg/dL (7-18); CALCIUM 9.1 mg/dL (8.5-10.1); CREATININE 0.7 mg/dL (0.55-1.3); POTASSIUM 3.6 mmol/L (3.5-5.1); TOT PROT 7.5 g/dl (6.4-8.2)
[2020-04-19 02:27] LABS: HEMATOCRIT 39.6 % (32.4-45.2); MCH 28.3 pg (25.7-33.7); MCHC 32.8 g/dl (32.0-36.0); MEAN CELL VOLUME 86.2 fl (80-96); RBC 4.59 M/mm3 (3.60-5.2); WHITE BLOOD COUNT 11.7 K/mm3 (4.0-10.0)
[2020-04-19 02:28] LABS: BASO % 0.1 % (0-2.0); EOS % 0.4 % (0-4.5); LYMPH % 30.5 % (8-40); MEAN PLT VOLUME 10.8 fl (7.5-11.1); MONO % 6.2 % (3.8-10.2); NEUT % 62.8 % (42.8-82.8); PLATELET COUNT 164 K/MM3 (134-434)
[2020-04-19] MEDS ORDERED: MAG HYDROX/AL HYDROX/SIMETH -MYLANTA- ORAL SUSPENSION PO ONE (02:45)
[2020-04-19] MEDS ORDERED: MAG HYDROX/AL HYDROX/SIMETH 30 ML UNIT-DOSE CUP ONE (02:46)
[2020-04-19 03:12] LABS: EPI CELLS >36 /uL (0-25.1); HYALINE CASTS 1 /uL (0-3.1); PH,URINE 6.5 (5.0-8.0); URINE APPEARANCE CLOUDY; URINE BACTERIA 803 /uL (0-1359); URINE BILIRUBIN NEGATIVE (NEGATIVE); URINE COLOR YELLOW; URINE GLUCOSE (UA) NEGATIVE (NEGATIVE); URINE KETONE NEGATIVE (NEGATIVE); URINE LEUK ESTERASE 3+ (NEGATIVE); URINE NITRITE NEGATIVE (NEGATIVE); URINE PROTEIN NEGATIVE (NEGATIVE); URINE UROBILINOGEN 0.2 mg/dL (0.2-1.0); URINE WBC 453 /uL (0-25.8)
== END 2020-04-19 02:59 | disposition home or self-care (01) ==
LOC: FER 00:41
PROC: 3E033NZ Introduction of Analgesics, Hypnotics, Sedatives into Peripheral Vein, Percutaneous Approach (ICD-10-PCS; principal; 2020-04-19)
DX: K52.9 Noninfective gastroenteritis and colitis, unspecified (principal)
CPT/HCPCS: 36415; 80053; 81003; 85025; 87086; 87186; 99284-25

== ENCOUNTER 2020-07-11 22:17 | Emergency (ER) | payer OTHER ==
[2020-07-11 22:27] VITALS: BP 105/69; PULSE 78; TEMP 98; BMI 58.3
--- OUTSIDE RECORDS SUMMARY | 2020-07-11 22:31 | XMS ---
:1985 [address] Organization [facility] Support Name Relationship Address Phone [employer] Unavailable [address] [place] [address] CRISTIAN LISA MOTHER [address] [facility] [phone] [place] [address] NIXON LISA MOTHER [address] [facility] [place] [address] NIXON LISA Mother [address] [place] [address] Re-disclosure Warning The records that you are about to access may contain information from federally- assisted alcohol or drug abuse programs. If such information is present, then the following federally mandated warning applies: This information has been disclosed to you from records protected by federal confidentiality rules (42 CFR part 2). The federal rules prohibit you from making any further disclosure of this information unless further disclosure is expressly permitted by the written consent of the person to whom it pertains or as otherwise permitted by 42 CFR part 2. A general authorization for the release of medical or other information is NOT sufficient for this purpose. The Federal rules restrict any use of the information to criminally investigate or prosecute any alcohol or drug abuse patient.The records that you are about to access may contain highly sensitive health information, the redisclosure of which is protected by Article 27-F of the [place] State Public Health law. If you continue you may haveaccess to information: Regarding HIV / AIDS; Provided by facilities licensed or operated by the [facility] Office of Mental Health; or Provided by the [facility] Office for People With Developmental Disabilities. If such information is present, then the following [facility] mandated warning applies: This information has been disclosed to you from confidential records which are protected by state law. State law prohibits you from making any further disclosure of this information without the specific written consent of the person to whom it pertains, or as otherwise permitted by law. Any unauthorized further disclosure in violation of state law may result in a fine or long-term sentence or both. A general authorization for the release of medical or other information is NOT sufficient authorization for further disclosure. Insurance Providers Payer name Policy type Policy ID Covered Covered libertarian's Policy P luca / Coverage libertarian ID relationship to [employer] type [employer] [place] [id number] SP [id number] 600 HEALTH NON CAP [place] [id number] SP [id number] 600 HEALTH NON CAP [place] [id number] 1 [id number] [facility] Results ID Date Data Source [id number] 06/17/2020 10:30:00 AM EDT [facility] Name Value Range Interpretation Code Description Data Deanne rce(s) Supporting Document(s ) SARS-COV-2 [facility] QL STEFANI[facility]PROBE This lab was ordered by [facility] nd reported by [facility]. ID Date Data Source [id number] 03/10/2020 06:21:00 PM EDT [facility] Name Value Range Interpretation Code Description Data Deanne rce(s) Supporting Document(s ) COV2 [facility] This lab was ordered by [facility] reported by [employer]. Procedure
[2020-07-11] MEDS ORDERED: ONDANSETRON 4 MG/2 ML VIAL IVPB ONE (22:35)
[2020-07-11] MEDS ORDERED: SODIUM CHLORIDE 1,000 ML IV ONE (22:35)
[2020-07-11] MEDS ORDERED: HYOSCYAMINE SULFATE 0.125 MG *ODT PO ONE (22:36)
--- NOTE | 2020-07-11 22:37 | PDOC ---
History of Present Illness - General Chief Complaint: Nausea/Vomiting Stated Complaint: N/V/D Time Seen by Provider: 07/11/20 22:27 History Source: Patient Exam Limitations: No Limitations - History of Present Illness Initial Comments: 07/11/20 22:37 This is a 35-year-old female who comes in complaining of crampy abdominal pain, nausea vomiting and diarrhea. Patient said she HER-2 sons have similar symptoms patient denies any fevers or chills. Patient denies any other complaints. Approximately 21 weeks but denies any lower abdominal cramping or vaginal discharge or spotting Allergies: as per nursing notes Past Medical History: none Social history: Lives with family. No smoking. No alcohol. No illicit drugs. Surgical history: None General: No fevers or chills, no weakness, no weight loss HEENT: No change in vision. No sore throat,. No ear pain CardioVascular: no chest discomfort. No shortness of breath Respiratory:No cough, or wheezing. Gastrointestinal: no nausea, vomiting, diarrhea or constipation, No rectal bleeding Genitourinary: No dysuria, hematuria, or frequency Musculoskeletal: No joint or muscle pain or swelling Neurologic: No headache, vertigo, dizziness or loss of consciousness Psychiatric: nor depression Skin: No rashes or easy bruising Endocrine: no increased thirst or abnormal weight change Allergic: no skin or latex allergy All other systems reviewed and normal Exam: General: Well-nourished well-developed individual, no acute distress HEENT: Throat: Normal, tonsils normal, no erythema or exudate Neck: Supple, no meningeal signs, no lymphadenopathy Eyes::Pupils equal reactive and round, extraocular motion intact Chest: Nontender to palpation Cardiac: S1-S2 normal, regular rate and rhythm, no murmurs rubs or gallops Respiratory: Lungs clear to auscultation bilateral Abdomen: Soft, slightly distended with increased bowel sounds, very mildly tender to palpation diffusely no guarding or rebound Extremities: Warm, dry, no cyanosis, clubbing, or edema Skin: No rashes Neuro: Alert and oriented x3, CN II - XII intact, nonfocal exam with normal strength, normal sensation, normal reflexes, normal gait, Psych: Normal mood and affect Assessment and plan: This is a 35-year-old female with abdominal pain nausea vomiting and diarrhea. This is most likely secondary to a virus as her 2 children have similar symptoms. Patient will be hydrated up given some hyoscyamine and Zofran. CBC comp and lipase were sent to the lab. 07/12/20 00:01 Reevaluation patient is received a liter of fluid some antiemetics does feel better however is still complaining of some mild crampy abdominal pain. Patient has had no further vomiting here in the ED and is tolerating small amounts of liquids. Patient will be discharged with a prescription sent to her pharmacy for Zofran and patient will be instructed to follow-up with her OB in the morning. Past History - Medical History Allergies/Adverse Reactions: Allergies Allergy/AdvReac Type Severity Reaction Status Date / Time No Known Allergies Allergy Verified 04/02/20 10:25 Home Medications: Ambulatory Orders Miconazole Nitrate 1 applic TP DAILY #1 tube 04/19/20 Ondansetron [Zofran *Odt*] 4 mg SL BID PRN #6 od.tablet 04/19/20 Amoxicillin - [Amoxicillin 500mg Capsule -] 500 mg PO TID #15 capsule 04/21/20 Nitrofurantoin Monohyd/M-Cryst [Macrobid -] 100 mg PO BID #14 capsule 04/21/20 Ciprofloxacin [Cipro -] 500 mg PO Q12H #10 tablet 07/12/20 COPD: No Other medical history: 20 WEEKS - Reproductive History Is Patient Now?: Yes (#): 2 Para: 2 - Immunization History Td Vaccination: Yes Immunization Up to Date: Yes - Psycho-Social/Smoking History Smoking Status: No Smoking History: Never smoked Years of Tobacco Use: 0 Have you smoked in the past 12 months: No Number of Cigarettes Smoked Daily: 0 Cigars Per Day: 0 *Physical Exam - Vital Signs Last Vital Signs Temp Pulse Resp BP Pulse Ox 98 F 78 16 105/69 100 07/11/20 22:23 07/11/20 22:23 07/11/20 22:23 07/11/20 22:23 07/11/20 22:23 ED Treatment Course - LABORATORY CBC & Chemistry Diagram: 07/11/20 23:00 07/11/20 23:00 Discharge - Discharge Information Problems reviewed: Yes Clinical Impression/Diagnosis: Nausea vomiting and diarrhea Condition: Stable Disposition: HOME - Admission No - Follow up/Referral - Patient Discharge Instructions Additional Instructions: Take ciprofloxacin 1 tablet twice a day for 5 days this should help with the diarrhea. Stay well-hydrated if at all possible Return to the emergency department immediately with ANY new, persistent or worsening symptoms. Continue any medications as previously prescribed by your physician. You should follow up with your primary doctor as soon as possible regarding today's emergency department visit. . Please make sure your doctor reviews the results of your emergency evaluation. Thank you for coming to the Emergency Department today for your care. It was a pleasure to see you today. Please note that your evaluation is INCOMPLETE until you follow-up with your doctor. - Post Discharge Activity
[2020-07-11] MEDS ORDERED: HYOSCYAMINE SULFATE 0.125 MG *ODT ONE (22:39)
[2020-07-11] MEDS ORDERED: ONDANSETRON 4 MG/2 ML VIAL ONE (22:40)
[2020-07-11 23:15] LABS: BASO % 0.2 % (0-2.0); EOS % 0.3 % (0-4.5); HEMATOCRIT 34.5 % (32.4-45.2); HEMOGLOBIN 11.4 GM/dl (10.7-15.3); LYMPH % 12.2 % (8-40); MCH 29.4 pg (25.7-33.7); MCHC 32.9 g/dl (32.0-36.0); MEAN CELL VOLUME 89.2 fl (80-96); MEAN PLT VOLUME 10.5 fl (7.5-11.1); MONO % 2.8 % (3.8-10.2); NEUT % 84.5 % (42.8-82.8); PLATELET COUNT 172 K/MM3 (134-434); RBC 3.87 M/mm3 (3.60-5.2); RDW 13.3 % (11.6-15.6); WHITE BLOOD COUNT 13.9 K/mm3 (4.0-10.8)
[2020-07-11 23:24] LABS: ALBUMIN 3.4 g/dl (3.4-5.0); BILIRUBIN,TOTAL 0.7 mg/dl (0.2-1); CALCIUM 8.4 mg/dl (8.5-10); CREATININE 0.4 mg/dl (0.55-1.3); POTASSIUM 3.8 mmol/L (3.5-5.1); TOT PROT 6.8 g/dl (6.4-8.2)
== END 2020-07-12 00:37 | disposition home or self-care (01) ==
LOC: FER 22:17
PROC: 3E033GC Introduction of Other Therapeutic Substance into Peripheral Vein, Percutaneous Approach (ICD-10-PCS; principal; 2020-07-11)
PROC: 3E0337Z Introduction of Electrolytic and Water Balance Substance into Peripheral Vein, Percutaneous Approach (ICD-10-PCS; 2020-07-11)
DX: R11.2 Nausea with vomiting, unspecified (principal); R19.7 Diarrhea, unspecified
CPT/HCPCS: 36415; 80053; 83690; 85025; 99284-25